=== PATIENT | male | born 1995 ===

== ENCOUNTER → 2022-09-12 | Outpatient (CLI) | payer OTHER ==
[~2022-09-12] MED LIST: AMOCLA875 PO; DOXY100 PO; HUMALOG KW100 UNIT/1 SC; IBUP600 PO; INSULANPEN SC; ONDA4ODT MM
[2022-09-12 19:29] LABS: BASOPHILS ABSOLUTE AUTO 0.05 K/mm3 (0.00-0.23); BASOPHILS PERCENT AUTO 1 % (0-2); EOSINOPHILS PERCENT AUTO 2 % (0-6); Hematocrit 33.5 % (37.0-53.0); Hemoglobin 11.4 g/dL (13.5-17.5); IMMATURE GRAN ABSOLUTE AUTO 0.02 K/mm3 (0.00-0.10); IMMATURE GRAN PERCENT AUTO 0 % (0-1); LYMPHOCYTES ABSOLUTE AUTO 1.04 K/mm3 (0.84-5.20); LYMPHOCYTES PERCENT AUTO 19 % (21-46); MONOCYTES ABSOLUTE AUTO 0.48 K/mm3 (0.16-1.47); MONOCYTES PERCENT AUTO 9 % (4-13); Mean Corpuscular HGB 31.2 pg (26.0-34.0); Mean Corpuscular Volume 92 fL (80-100); Mean Platelet Volume 9.1 fL (9.1-12.4); NEUTROPHILS ABSOLUTE AUTO 3.67 K/mm3 (1.96-9.15); NEUTROPHILS PERCENT AUTO 68 % (41-73); Platelet Count 558 K/mm3 (150-400); RDW Coefficient Variation 11.7 % (11.7-14.2); RDW Standard Deviation 39.3 fL (35.1-46.3); Red Blood Cell Count 3.65 M/mm3 (4.30-5.90); White Blood Cell Count 5.36 K/mm3 (4.00-11.30)
[2022-09-12 21:34] LABS: Bun/Creatinine Ratio 29.8 (12.0-20.0); Calcium, Blood 9.4 mg/dL (8.5-10.1); Creatinine, Blood 0.57 mg/dL (0.60-1.20); Potassium, Blood 4.2 mmol/L (3.5-5.5)
== END | disposition home or self-care (01) ==
LOC: LAB SHORT 17:40
PROVIDERS: Physician Assistant
DX: R60.9 Edema, unspecified (principal)
CPT/HCPCS: 80048; 83880; 85025

== ENCOUNTER → 2023-06-11 | Outpatient (CLI) | payer OTHER ==
[2023-06-11 15:51] LABS: BASOPHILS ABSOLUTE AUTO 0.06 K/mm3 (0.00-0.23); BASOPHILS PERCENT AUTO 1 % (0-2); EOSINOPHILS ABSOLUTE AUTO 0.11 K/mm3 (0.00-0.68); EOSINOPHILS PERCENT AUTO 2 % (0-6); Hematocrit 43.6 % (37.0-53.0); Hemoglobin 15.8 g/dL (13.5-17.5); IMMATURE GRAN ABSOLUTE AUTO 0.03 K/mm3 (0.00-0.10); IMMATURE GRAN PERCENT AUTO 1 % (0-1); LYMPHOCYTES ABSOLUTE AUTO 1.11 K/mm3 (0.84-5.20); LYMPHOCYTES PERCENT AUTO 17 % (21-46); MONOCYTES ABSOLUTE AUTO 0.48 K/mm3 (0.16-1.47); MONOCYTES PERCENT AUTO 7 % (4-13); Mean Corpuscular HGB 31.5 pg (26.0-34.0); Mean Corpuscular HGB Conc 36.2 g/dL (31.5-36.5); Mean Corpuscular Volume 87 fL (80-100); Mean Platelet Volume 10.4 fL (9.1-12.4); NEUTROPHILS ABSOLUTE AUTO 4.73 K/mm3 (1.96-9.15); NEUTROPHILS PERCENT AUTO 73 % (41-73); Platelet Count 374 K/mm3 (150-400); RDW Coefficient Variation 11.5 % (11.7-14.2); RDW Standard Deviation 36.5 fL (35.1-46.3); Red Blood Cell Count 5.02 M/mm3 (4.30-5.90); White Blood Cell Count 6.52 K/mm3 (4.00-11.30)
[2023-06-11 20:05] LABS: Alanine Aminotransfer (ALT/SGP 66 U/L (12-78); Albumin, Blood 3.4 g/dL (3.4-5.0); Albumin/Globulin Ratio 0.8 (0.8-1.8); Alk Phos 79 U/L (50-136); Anion Gap 9 mmol/L (6-16); Aspartate Aminotrans (AST/SGOT 29 U/L (12-37); Bilirubin, Direct <0.1 mg/dL (0.0-0.3); Bilirubin, Indirect Unable to Calculate mg/dL (0.1-0.7); Bilirubin, Total 0.3 mg/dL (0.1-1.0); Blood Urea Nitrogen 19 mg/dL (8-24); Bun/Creatinine Ratio 25.5 (12.0-20.0); CO2, Blood 23 mmol/L (21-32); Calcium, Blood 10.2 mg/dL (8.5-10.1); Chloride, Blood 101 mmol/L (98-108); Creatinine, Blood 0.75 mg/dL (0.60-1.20); Globulin, Blood 4.2 g/dL (2.2-4.0); Glomerular Filtration Rate 126 (60-); Glucose, Blood 386 mg/dL (70-99); Potassium, Blood 4.4 mmol/L (3.5-5.5); Sodium, Blood 133 mmol/L (136-145); Total Protein, Blood 7.6 g/dL (6.4-8.2)
== END ==
LOC: LAB SHORT 10:45 → LAB 10:45
PROVIDERS: Family Medicine
DX: I10 Essential (primary) hypertension (principal); E10.65 Type 1 diabetes mellitus with hyperglycemia
CPT/HCPCS: 80053; 82248; 83036; 84443; 85025

== ENCOUNTER 2023-07-08 10:23 | Inpatient (IN) | payer OTHER ==
[~2023-07-08] VITALS: Ht 172.7 cm; Wt 61.5 kg
[2023-07-08] VITALS (12 sets, daily range): BP systolic 149–183; BP diastolic 97–120
[2023-07-08 10:44] LABS: BASOPHILS ABSOLUTE AUTO 0.04 K/mm3 (0.00-0.23); BASOPHILS PERCENT AUTO 0 % (0-2); EOSINOPHILS PERCENT AUTO 0 % (0-6); Hematocrit 44.4 % (37.0-53.0); IMMATURE GRAN ABSOLUTE AUTO 0.15 K/mm3 (0.00-0.10); IMMATURE GRAN PERCENT AUTO 1 % (0-1); LYMPHOCYTES ABSOLUTE AUTO 0.47 K/mm3 (0.84-5.20); LYMPHOCYTES PERCENT AUTO 2 % (21-46); MONOCYTES ABSOLUTE AUTO 1.03 K/mm3 (0.16-1.47); MONOCYTES PERCENT AUTO 5 % (4-13); Mean Corpuscular HGB 31.2 pg (26.0-34.0); Mean Corpuscular Volume 87 fL (80-100); Mean Platelet Volume 9.6 fL (9.1-12.4); NEUTROPHILS ABSOLUTE AUTO 19.35 K/mm3 (1.96-9.15); NEUTROPHILS PERCENT AUTO 92 % (41-73); Platelet Count 433 K/mm3 (150-400); RDW Coefficient Variation 11.9 % (11.7-14.2); RDW Standard Deviation 37.9 fL (35.1-46.3); Red Blood Cell Count 5.13 M/mm3 (4.30-5.90); White Blood Cell Count 21.04 K/mm3 (4.00-11.30)
[2023-07-08 10:45] LABS: Base Excess Venous -13.3 mmol/L; Bicarbonate Venous 15.9 mmol/L (24.0-30.0); PCO2 Venous 25.6 mmHg (38-42); pH Blood Venous 7.31 (7.34-7.37)
[2023-07-08 10:52] LABS: Albumin, Blood 3.3 g/dL (3.4-5.0); Albumin/Globulin Ratio 0.8 (0.8-1.8); Bilirubin, Total 0.7 mg/dL (0.1-1.0); Calcium, Blood 8.6 mg/dL (8.5-10.1); Creatinine, Blood 0.78 mg/dL (0.60-1.20); Globulin, Blood 4.1 g/dL (2.2-4.0); Total Protein, Blood 7.4 g/dL (6.4-8.2)
[2023-07-08] MEDS ORDERED: BASAGLAR K100 UNIT/8 SQ (12:34)
[2023-07-08] MEDS ORDERED: LOSARTAN POTASS25 M2 PO (12:35)
[2023-07-08] MEDS ORDERED: BUPROPION XL150 M1 PO (12:35)
[2023-07-08] MEDS ORDERED: FUROSEMIDE20 MG PO (12:35)
[2023-07-08] MEDS ORDERED: GABAPENTIN600 MG PO (12:35)
[2023-07-08 12:39] LABS: U Amphetamine Screen Not Detected; U Barbituate Screen Not Detected; U Benzodiazapine Screen Not Detected; U Buprenorphine Screen Not Detected; U Cannabinoids Screen DETECTED; U Cocaine Screen Not Detected; U Methadone Screen Not Detected; U Methamphetamine Screen Not Detected; U Opiates Screen Not Detected; U Oxycodone Screen Not Detected; U Phencyclidine Screen Not Detected
[2023-07-08 13:49] LABS: Potassium, Blood 3.5 mmol/L (3.5-5.5)
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
--- NOTE | 2023-07-08 15:53 | NUR ---
DR. DEAN CALLED AND INFORMED THAT PATIENT ANXIOUS, RESTLESS AND COMPLAINING OF CHRONIC BACK PAIN. INFORMED THAT HR IN THE 140S AND BP 183/120. INFORMED THAT PATIENT TAKES WELLBUTRIN AT HOME AND ALSO [place] POTASSIUM. ORDERS RECEIVED.
[2023-07-08 16:54] LABS: Potassium, Blood 3.1 mmol/L (3.5-5.5)
--- NOTE | 2023-07-08 17:30 | NUR ---
DR. DEAN CALLED AND INFORMED THAT POTASSIUM 3.1, CO2 OF 18 AND ANION 12. INFORMED THAT PATIENT WANTING TO LEAVE AMA. ORDERED FOR 40 ME KCL PO.
--- NOTE | 2023-07-08 17:40 | NUR ---
SHIFT SUMMARY PATIENT REMAINED ALERT AND ORIENTED. PATIENT ANXIOUS, RESTLESS, WITHDRAWN. PATIENT GIVEN PRN TYLENOL FOR COMPLAINTS OF CHRONIC BACK PAIN. PATIENT'S HOME WELLBUTRIN ORDERED AND GIVEN. OT ATIVAN PO GIVEN FOR ANXIETY. PATIENT WEAK BUT ABLE TO AMBULATE INDEPENDENTLY. PATIENT REMAINED AFEBRILE. PATIENT HAD SOFT VOICE "FROM THROWING UP LAST COUPLE OF DAYS". PATIENT REMAINED SATTING HIGH 90S TO 100 ON RA. PATIENT REMAINED IN ST, HR LOW 100S TO 140S. BP 140S TO 180S. PATIENT'S HOME BP MED ORDERED AND ADMINISTERED THIS SHIFT. PATIENT DENIED NAUSEA THIS SHIFT AND DRANK WATER WITH NO PROBLEMS. PATIENT VOIDED ADEQUATE URINE THIS SHIFT INTO URINAL INDEPENDENTLY. NO CHANGES TO SKIN NOTED. PATIENT REPOSITIONED SELF FREQUENTLY IN BED. ONCE BLOOD SUGAR LESS THAN 240 PATIENT TRANSITIONED FROM NS TO D5 1/2 NS AT 100 MLS/ HOUR. INSULIN DRIP UP TO MAX OF 4 UNITS/ HOUR. BLOOD SUGARS RANGED FROM 179 TO 288 THIS SHIFT. THIS AFTERNOON PATIENT STATED HE WANTED TO GO HOME AND WOULD BE LEAVING. NOTHING SEEMED TO INCITE PATIENT TO WANT TO LEAVE. PATIENT ASKED IF HE WOULD LIKE TO SPEAK WITH OR HIS MOTHER AND ALSO EXPLAINED TO (ON 2 SEPARATE OCCASIONS BY PRIMARY NURSE AND CHARGE NURSE) THE IMPORTANCE OF STAYING UNTIL LABS CORRECTED AND OKAY TO LEAVE PER . PATIENT AGREED TO TAKE 40 MEQ KCL PO FOR POTASSIUM OF 3.1 BEFORE LEAVING. PATIENT CALLED MOM TO COME PICK HIM UP. PATIENT PUT CLOTHES ON AND TOOK BELONGINGS WITH (CELL PHONE). PATIENT LEFT AMA AT THIS TIME.
[2023-07-09] MEDS ORDERED: BASAGLAR K100 UNIT/3 SC ×2 (09:03→09:04)
[2023-07-09] MEDS ORDERED: NOVOLIN R100 UNIT/2 SC (09:04)
[2023-07-09] MEDS ORDERED: GABA600 PO (09:35)
[2023-07-09] MEDS ORDERED: OMEP20ER PO (09:35)
[2023-07-09] MEDS ORDERED: FURO20 PO (09:40)
[2023-07-09] MEDS ORDERED: AMLO5 PO (09:41)
[2023-07-09] MEDS ORDERED: LOSA25 PO (09:41)
[2023-07-09] MEDS ORDERED: LISI10 PO (09:42)
[2023-07-09] MEDS ORDERED: TRAZ100 PO (09:42)
== END 2023-07-08 18:05 | disposition left against medical advice (07) | DRG 639 ==
LOC: ER 10:23 → ICUE 13:47
PROVIDERS: Emergency Medicine; ADMIT Internal Medicine
DX: E10.10 Type 1 diabetes mellitus with ketoacidosis without coma (principal); Z79.4 Long term (current) use of insulin; Z86.74 Personal history of sudden cardiac arrest
CPT/HCPCS: 80051; 80053; 82803; 82947; 85025; 93005; 93010; A9270; C1751; J1790; J1815; J2405; J7030; J7042

== ENCOUNTER 2023-07-09 04:14 | Inpatient (IN) | payer OTHER ==
[2023-07-09] VITALS (16 sets, daily range): BP systolic 132–171; BP diastolic 86–113
[~2023-07-09] VITALS: Ht 172.7 cm; Wt 62.7 kg
[~2023-07-09 04:14] MED LIST changes: +BASAGLAR K100 UNIT/8 SQ; +BUPROPION XL150 M1 PO; +FUROSEMIDE20 MG PO; +GABAPENTIN600 MG PO; +LOSARTAN POTASS25 M2 PO
[2023-07-09 04:44] LABS: Base Excess Venous -19.1 mmol/L; Bicarbonate Venous 12.7 mmol/L (24.0-30.0); PCO2 Venous 19.5 mmHg (38-42); pH Blood Venous 7.24 (7.34-7.37)
[2023-07-09 04:46] LABS: Hematocrit 47.5 % (37.0-53.0); Mean Corpuscular HGB 31.2 pg (26.0-34.0); Mean Corpuscular HGB Conc 35.8 g/dL (31.5-36.5); Mean Corpuscular Volume 87 fL (80-100); Mean Platelet Volume 9.7 fL (9.1-12.4); Platelet Count 437 K/mm3 (150-400); Red Blood Cell Count 5.45 M/mm3 (4.30-5.90); White Blood Cell Count 23.37 K/mm3 (4.00-11.30)
[2023-07-09 05:05] LABS: Ethanol (Alcohol), Blood, Med <3 mg/dL; Magnesium, Blood 2.1 mg/dL (1.6-2.4)
[2023-07-09 05:10] LABS: Alanine Aminotransfer (ALT/SGP 30 U/L (12-78); Albumin, Blood 3.7 g/dL (3.4-5.0); Albumin/Globulin Ratio 0.8 (0.8-1.8); Alk Phos 71 U/L (50-136); Anion Gap 27 mmol/L (6-16); Aspartate Aminotrans (AST/SGOT 15 U/L (12-37); Bilirubin, Total 0.9 mg/dL (0.1-1.0); Blood Urea Nitrogen 18 mg/dL (8-24); Bun/Creatinine Ratio 25.1 (12.0-20.0); CO2, Blood 10 mmol/L (21-32); Calcium, Blood 9.3 mg/dL (8.5-10.1); Chloride, Blood 98 mmol/L (98-108); Creatinine, Blood 0.72 mg/dL (0.60-1.20); Globulin, Blood 4.4 g/dL (2.2-4.0); Glomerular Filtration Rate 128 (60-); Glucose, Blood 475 mg/dL (70-99); Potassium, Blood 2.9 mmol/L (3.5-5.5); Sodium, Blood 135 mmol/L (136-145); Total Protein, Blood 8.1 g/dL (6.4-8.2)
[2023-07-09 05:13] LABS: BAND PERCENT MAN 16 % (0-8); BASOPHILS PERCENT MAN 0 % (0-2); EOSINOPHILS PERCENT MAN 0 % (0-6); LYMPHOCYTES ABSOLUTE MAN 1.16 K/mm3 (0.84-5.20); LYMPHOCYTES PERCENT MAN 5 % (21-46); MONOCYTES ABSOLUTE MAN 1.16 K/mm3 (0.16-1.47); MONOCYTES PERCENT MAN 5 % (4-13); NEUTROPHILS ABSOLUTE MAN 21.03 K/mm3 (1.96-9.15); SEG NEUTROPHILS PERCENT MAN 74 % (41-73); TOTAL CELLS COUNTED 100
[2023-07-09 05:58] LABS: Source, Urine Voided
[2023-07-09 05:59] LABS: Beta-hydroxybutyrate 108.6 mg/dL (0.2-2.8)
[2023-07-09 06:04] LABS: Bilirubin, Urine Neg (Neg); Blood, Urine 3+ (Neg); Glucose Qualitative, Urine 4+ (Neg); Ketones, Urine 4+ (Neg); Leukocyte Esterase, Urine Neg (Neg); Nitrite, Urine Neg (Neg); Protein, Urine 4+ (Neg); Specific Gravity, Urine 1.025 (1.003-1.022); Urobilinogen, Urine NORM (Normal)
[2023-07-09 06:07] LABS: Appearance, Urine Clear (Clear); Color, Urine Yellow (P-Yellow)
[2023-07-09 06:12] LABS: Amorphous Light (0-Heavy); Bacteria Not Seen /hpf; Granular Casts 0-2 /lpf (0); Red Blood Cells, Urine 0-2 /hpf (0-2); Squamous Epithelial Cells Not Seen /hpf (Few); White Blood Cells, Urine 0-2 /hpf (0-5)
[2023-07-09 06:17] LABS: U Amphetamine Screen Not Detected; U Barbituate Screen Not Detected; U Benzodiazapine Screen Not Detected; U Buprenorphine Screen Not Detected; U Cannabinoids Screen DETECTED; U Cocaine Screen Not Detected; U Methadone Screen Not Detected; U Methamphetamine Screen Not Detected; U Opiates Screen Not Detected; U Oxycodone Screen Not Detected; U Phencyclidine Screen Not Detected
[2023-07-09 07:36] LABS: Base Excess Venous -12.6 mmol/L; Bicarbonate Venous 15.9 mmol/L (24.0-30.0); PCO2 Venous 29.1 mmHg (38-42); pH Blood Venous 7.29 (7.34-7.37)
[2023-07-09 07:40] LABS: Bun/Creatinine Ratio 26.6 (12.0-20.0); Calcium, Blood 8.3 mg/dL (8.5-10.1); Creatinine, Blood 0.71 mg/dL (0.60-1.20); Magnesium, Blood 1.9 mg/dL (1.6-2.4); Phosphorus, Blood 1.4 mg/dL (2.5-4.9); Potassium, Blood 2.9 mmol/L (3.5-5.5)
[2023-07-09] MEDS ORDERED: BASAGLAR K100 UNIT/3 SC ×2 (09:03→09:04)
[2023-07-09] MEDS ORDERED: NOVOLIN R100 UNIT/2 SC (09:04)
[2023-07-09] MEDS ORDERED: OMEP20ER PO (09:35)
[2023-07-09] MEDS ORDERED: GABA600 PO (09:35)
[2023-07-09] MEDS ORDERED: FURO20 PO (09:40)
[2023-07-09] MEDS ORDERED: LOSA25 PO (09:41)
[2023-07-09] MEDS ORDERED: AMLO5 PO (09:41)
[2023-07-09] MEDS ORDERED: TRAZ100 PO (09:42)
[2023-07-09] MEDS ORDERED: LISI10 PO (09:42)
[2023-07-09 11:53] LABS: Base Excess Venous -11.4 mmol/L; Bicarbonate Venous 16.8 mmol/L (24.0-30.0); PCO2 Venous 27.5 mmHg (38-42); pH Blood Venous 7.33 (7.34-7.37)
[2023-07-09 12:17] LABS: Bun/Creatinine Ratio 24.3 (12.0-20.0); Calcium, Blood 8.2 mg/dL (8.5-10.1); Creatinine, Blood 0.62 mg/dL (0.60-1.20); Magnesium, Blood 1.9 mg/dL (1.6-2.4); Potassium, Blood 3.8 mmol/L (3.5-5.5)
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
[2023-07-09 15:36] LABS: Base Excess Venous -13.1 mmol/L; Bicarbonate Venous 15.5 mmol/L (24.0-30.0); PCO2 Venous 28.7 mmHg (38-42); pH Blood Venous 7.28 (7.34-7.37)
[2023-07-09 16:04] LABS: Magnesium, Blood 1.7 mg/dL (1.6-2.4)
[2023-07-09 17:04] LABS: Bun/Creatinine Ratio 18.6 (12.0-20.0); Calcium, Blood 8.3 mg/dL (8.5-10.1); Creatinine, Blood 0.64 mg/dL (0.60-1.20); Potassium, Blood 3.8 mmol/L (3.5-5.5)
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
--- NOTE | 2023-07-09 20:45 | NUR ---
PATIENT SLEEPING AWAKENS TO SLIGHT STIMULI. CONTINUES TO C/O SORE THROAT, VOICE HORSE AND WET SOUNDING, ABLE TO ORAL SUCTION MOD AMT OF CLEAR TO WHITE SPUTUM. PATIENT VERBALIZED THAT IT IS PAINFUL TO SWALLOW HIS OWN SALIVA. INSULIN DRIP 3 UNITS /HR CONTINUES WITH D5 1/2 NS @ 75 CC/HR. NEXT CHEM IS AT 2200.
[2023-07-09 23:04] LABS: Bun/Creatinine Ratio 16.1 (12.0-20.0); Calcium, Blood 8.1 mg/dL (8.5-10.1); Creatinine, Blood 0.62 mg/dL (0.60-1.20); Potassium, Blood 3.2 mmol/L (3.5-5.5)
[2023-07-10] VITALS (27 sets, daily range): BP systolic 130–177; BP diastolic 82–111
--- NOTE | 2023-07-10 | NUR ---
DOCTOR OLE NOTIFIED OF REPEAT CHEM, AND THAT PATIENT REMAINS NAUSEATED WITH FREQUENT DRY HEAVES. HEART RATE UP TO 150'S HR 130'S AT REST. PLAN TO CONTINUE INSULIN DRIP AND INCREASE D5 1/2NS TO 125 CC/HR. KCL 40 MEQ IV X1.
[2023-07-10 04:56] LABS: BASOPHILS ABSOLUTE AUTO 0.01 K/mm3 (0.00-0.23); BASOPHILS PERCENT AUTO 0 % (0-2); EOSINOPHILS ABSOLUTE AUTO 0.01 K/mm3 (0.00-0.68); EOSINOPHILS PERCENT AUTO 0 % (0-6); Hematocrit 35.8 % (37.0-53.0); Hemoglobin 13.1 g/dL (13.5-17.5); IMMATURE GRAN ABSOLUTE AUTO 0.04 K/mm3 (0.00-0.10); IMMATURE GRAN PERCENT AUTO 0 % (0-1); LYMPHOCYTES ABSOLUTE AUTO 0.59 K/mm3 (0.84-5.20); LYMPHOCYTES PERCENT AUTO 5 % (21-46); MONOCYTES ABSOLUTE AUTO 1.36 K/mm3 (0.16-1.47); MONOCYTES PERCENT AUTO 12 % (4-13); Mean Corpuscular HGB 31.1 pg (26.0-34.0); Mean Corpuscular HGB Conc 36.6 g/dL (31.5-36.5); Mean Corpuscular Volume 85 fL (80-100); Mean Platelet Volume 9.6 fL (9.1-12.4); NEUTROPHILS ABSOLUTE AUTO 9.35 K/mm3 (1.96-9.15); NEUTROPHILS PERCENT AUTO 82 % (41-73); Platelet Count 258 K/mm3 (150-400); RDW Coefficient Variation 11.9 % (11.7-14.2); RDW Standard Deviation 37.1 fL (35.1-46.3); Red Blood Cell Count 4.21 M/mm3 (4.30-5.90); White Blood Cell Count 11.36 K/mm3 (4.00-11.30)
[2023-07-10 05:15] LABS: Magnesium, Blood 1.8 mg/dL (1.6-2.4)
--- NOTE | 2023-07-10 05:25 | NUR ---
SUMMARY PATIENT CONTINUES TO HAVE SEVERE SORE THROAT, MAKING IT DIFFICULT TO SWALLOW HIS OWN ORAL SECRETIONS. USING ORAL SUCTION AT TIMES. ABLE TO TAKE LIQUID TYLENOL WITH EFFORT. ATIVAN GIVEN TWICE DURING THE NIGHT TO HELP WITH ANXIETY. INSULIN DRIP TITRATED DOWN TO 1 UNIT/HR DUE TO GLUCOSE LOW 100'S. D5 1/2 NS @125/HR CONTINUES. GENERALIZED WEAKNESS UP TO SIDE OF BED TO VOID WITH MIN ASSIST, SLIGHTLY OFF BALANCE AT TIMES. SINUS TACH 120'S CONTINUES WITH DBP IN THE 100'S T/O NIGHT.
[2023-07-10 05:36] LABS: Albumin, Blood 2.3 g/dL (3.4-5.0); Albumin/Globulin Ratio 0.7 (0.8-1.8); Bilirubin, Total 0.6 mg/dL (0.1-1.0); Bun/Creatinine Ratio 16.1 (12.0-20.0); Calcium, Blood 8.2 mg/dL (8.5-10.1); Creatinine, Blood 0.56 mg/dL (0.60-1.20); Globulin, Blood 3.4 g/dL (2.2-4.0); Potassium, Blood 3.6 mmol/L (3.5-5.5)
[2023-07-10 05:37] LABS: Total Protein, Blood 5.7 g/dL (6.4-8.2)
--- NOTE | 2023-07-10 08:14 | NUR ---
NURSING ICU DAYSHIFT: Assumed care of pt at approx 0700. A/O, mildy anxious, cooperative w/care. Slight general weakness, able to reposition and stand independently. Small healing scab/abrasion on forehead, skin otherwise intact. C/O 6/10 pain r/t sore throat, impacting ability to swallow secretions, treating w/warm liquids and lozenges. Cardiac monitoring in place, HR 120's, HTN prior to a.m. meds, trace pedal edema. L/S fairly cta t/o, audible moist respirations r/t increased secretions, O2 sat upper 90's on RA, harsh cough producing thick white/clear sputum, continuous O2 monitoring. Abd SNT, BT+, intermittent nausea, emesis often triggered by cough, voiding w/o difficulty per pt. PIV x2, D5 1/2NS infusing at 125mls/hr, insulin gtt at 1unit/hr. No s/s of acute distress this a.m. MomAshanti, at bedside. Update provided and plan of care discussed w/pt and family. Continue Q1 CBG monitoring. Remains NPO though hot tea provided for sore throat. Pt denies any current needs or questions, call light in reach, cont to monitor for changes.
[2023-07-10 10:40] LABS: Albumin, Blood 2.2 g/dL (3.4-5.0); Albumin/Globulin Ratio 0.7 (0.8-1.8); Bilirubin, Total 0.6 mg/dL (0.1-1.0); Bun/Creatinine Ratio 13.1 (12.0-20.0); Calcium, Blood 8.2 mg/dL (8.5-10.1); Creatinine, Blood 0.53 mg/dL (0.60-1.20); Globulin, Blood 3.3 g/dL (2.2-4.0); Total Protein, Blood 5.5 g/dL (6.4-8.2)
[2023-07-10 11:54] LABS: Adenovirus Not Detected (NOT DETECT); Coronavirus 229E Not Detected (NOT DETECT)
[2023-07-10 11:55] LABS: Bordetella pertussis Not Detected (NOT DETECT); Chlamydophila pneumoniae Not Detected (NOT DETECT); Coronavirus HKU1 Not Detected (NOT DETECT); Coronavirus NL63 Not Detected (NOT DETECT); Coronavirus OC43 Not Detected (NOT DETECT); Human Metapneumovirus Not Detected (NOT DETECT); Human Rhinovirus/Enterovirus Not Detected (NOT DETECT); Influenza A/2009-H1 Not Detected (NOT DETECT); Influenza A/H1 Not Detected (NOT DETECT); Influenza A/H3 Not Detected (NOT DETECT); Influenza B Not Detected (NOT DETECT); Mycoplasma pneumoniae Not Detected (NOT DETECT); Parainfluenza Virus 1 Not Detected (NOT DETECT); Parainfluenza Virus 2 Not Detected (NOT DETECT); Parainfluenza Virus 3 Not Detected (NOT DETECT); Parainfluenza Virus 4 Not Detected (NOT DETECT); Respiratory Syncytial Virus Not Detected (NOT DETECT); SARS-Cov-2 (COVID-19), BioFire Not Detected (NOT DETECT)
--- NOTE | 2023-07-10 17:26 | NUR ---
NURSING ICU DAYSHIFT SUMMARY: No significant changes noted t/o the shift. Seen by PMD, new d/o received. IV and oral K+ administered as ordered. D5 1/2 NS continues to infuse at 125mls/hr, insulin gtt titrated to 2 units/hr. Glucose maintaining 170's t/o afternoon, change CBG checks to Q2 hrs. Strep and respiratory panel completed, results reviewed. Pt given magic mouthwash and chloraseptic spray to help w/sore throat, has worked fairly well and is able to clear more secretions than at start of shift. Intermittent nausea though beginning to tolerate small amts of CL and FL items. Spoke w/pt and family regarding plan of care and importance of oral intake, verbalized understanding. Per parents request, plan for meeting w/dialysis chief equipment technician tomorrow at 1100 to discuss diabetic diet in the home. Mother currently and bedside. Pt and family deny any current questions/needs, call light in reach, cont to monitor until rpt is given to NOC RN.
--- NOTE | 2023-07-10 20:32 | NUR ---
PATIENT AWAKE SITTING AT SIDE OF BED. SPEECH CONTINUES TO BE SOFT, PATIENT VERBALIZED THAT HE IS STARTING TO FEEL BETTER. SORE THROAT CONTINUES, BUT PATIENT APPEARS TO BE ABLE TO CONTROL PO AND SECRETIONS BETTER. INSULIN DRIP CONTINUES TITRATE INCREASED TO 3 UNITS/HR DUE TO INCREASED GLUCOSE AFTER EATING FULL LIQUID DIET. CONTINUES TO FEEL ANXIOUS AT TIMES.
[2023-07-11] VITALS (16 sets, daily range): BP systolic 120–163; BP diastolic 85–110
[2023-07-11 03:25] LABS: BASOPHILS ABSOLUTE AUTO 0.01 K/mm3 (0.00-0.23); BASOPHILS PERCENT AUTO 0 % (0-2); EOSINOPHILS ABSOLUTE AUTO 0.04 K/mm3 (0.00-0.68); EOSINOPHILS PERCENT AUTO 1 % (0-6); Hematocrit 33.9 % (37.0-53.0); Hemoglobin 12.3 g/dL (13.5-17.5); IMMATURE GRAN ABSOLUTE AUTO 0.02 K/mm3 (0.00-0.10); IMMATURE GRAN PERCENT AUTO 0 % (0-1); LYMPHOCYTES ABSOLUTE AUTO 0.74 K/mm3 (0.84-5.20); LYMPHOCYTES PERCENT AUTO 9 % (21-46); MONOCYTES ABSOLUTE AUTO 0.74 K/mm3 (0.16-1.47); MONOCYTES PERCENT AUTO 9 % (4-13); Mean Corpuscular HGB 30.4 pg (26.0-34.0); Mean Corpuscular HGB Conc 36.3 g/dL (31.5-36.5); Mean Corpuscular Volume 84 fL (80-100); Mean Platelet Volume 9.3 fL (9.1-12.4); NEUTROPHILS ABSOLUTE AUTO 6.78 K/mm3 (1.96-9.15); NEUTROPHILS PERCENT AUTO 81 % (41-73); Platelet Count 205 K/mm3 (150-400); RDW Coefficient Variation 11.5 % (11.7-14.2); RDW Standard Deviation 35.3 fL (35.1-46.3); Red Blood Cell Count 4.04 M/mm3 (4.30-5.90); White Blood Cell Count 8.33 K/mm3 (4.00-11.30)
[2023-07-11 03:46] LABS: Albumin, Blood 2.1 g/dL (3.4-5.0); Albumin/Globulin Ratio 0.6 (0.8-1.8); Bilirubin, Total 0.5 mg/dL (0.1-1.0); Bun/Creatinine Ratio 9.6 (12.0-20.0); Calcium, Blood 8.2 mg/dL (8.5-10.1); Creatinine, Blood 0.52 mg/dL (0.60-1.20); Globulin, Blood 3.5 g/dL (2.2-4.0); Magnesium, Blood 1.9 mg/dL (1.6-2.4); Phosphorus, Blood 1.5 mg/dL (2.5-4.9); Potassium, Blood 3.1 mmol/L (3.5-5.5); Total Protein, Blood 5.6 g/dL (6.4-8.2)
--- NOTE | 2023-07-11 05:10 | NUR ---
DOCTOR NICKI NOTIFIED OF AM LABS. SEE NEW ORDERS
--- NOTE | 2023-07-11 06:19 | NUR ---
SUMMARY PATIENT SLEEPING OFF AND ON T/O NIGHT. C/O FEELING ANXIOUS SEVERAL TIMES DURING THE NIGHT. ATIVAN GIVEN WITH GOOD RESULTS. PATIENT CONTINUES TO HAVE SORE THROAT, APPEARS TO BE LUNA PO MUCH BETTER TONIGHT. MAGIC MOUTHWASH ONCE DURING THE NIGHT. INSULIN DRIP CONTINUES TITRATING T/O NIGHT NOW AT 3 UNITS/HR. KPHOS INFUSING.
--- NOTE | 2023-07-11 15:33 | NUR ---
DISCHARGE PT VERBALIZED UNDERSTANDING OF DISCHARGE INSTRUCTIONS AND SIGNED PAPERWORK. PT TAKEN TO RIDE HOME VIA WHEELCHAIR AT 1510. ALL PT BELONGINGS SENT WITH PT.
== END 2023-07-11 15:30 | disposition home or self-care (01) | DRG 638 ==
LOC: ER 04:14 → ICUE 05:05
PROVIDERS: Emergency Medicine; Internal Medicine; ADMIT Student in an Organized Health Care Education/Training Program
DX: E10.10 Type 1 diabetes mellitus with ketoacidosis without coma (principal); E87.20 Acidosis, unspecified; R65.10 Systemic inflammatory response syndrome (SIRS) of non-infectious origin without acute organ dysfunction; I10 Essential (primary) hypertension; F41.9 Anxiety disorder, unspecified; E87.6 Hypokalemia
CPT/HCPCS: 0202U; 36415; 71045; 80048; 80053; 81001; 82010; 82803; 82947; 83605; 83735; 84100; 84484; 85025; 87081; 87430; 93005; 93010; 96361; 96365; 96366; 96367; 96375; 99285-25; A9270; C9113; J0696; J1650; J1815; J2060; J2405; J3480; J7030; J7042; J7050; J7060; J7120

== ENCOUNTER 2023-08-07 15:09 | Emergency (ER) | payer OTHER ==
[~2023-08-07] VITALS: Ht 175.3 cm; Wt 68.0 kg
[~2023-08-07 15:09] MED LIST changes: +AMLO5 PO; +BASAGLAR K100 UNIT/3 SC; +FURO20 PO; +GABA600 PO; +LISI10 PO; +LOSA25 PO; +NOVOLIN R100 UNIT/2 SC; +OMEP20ER PO; +TRAZ100 PO
[2023-08-07 16:37] LABS: BASOPHILS ABSOLUTE AUTO 0.03 K/mm3 (0.00-0.23); BASOPHILS PERCENT AUTO 0 % (0-2); EOSINOPHILS ABSOLUTE AUTO 0.06 K/mm3 (0.00-0.68); EOSINOPHILS PERCENT AUTO 1 % (0-6); Hematocrit 37.9 % (37.0-53.0); Hemoglobin 13.6 g/dL (13.5-17.5); IMMATURE GRAN ABSOLUTE AUTO 0.04 K/mm3 (0.00-0.10); IMMATURE GRAN PERCENT AUTO 0 % (0-1); LYMPHOCYTES ABSOLUTE AUTO 0.64 K/mm3 (0.84-5.20); LYMPHOCYTES PERCENT AUTO 6 % (21-46); MONOCYTES ABSOLUTE AUTO 0.74 K/mm3 (0.16-1.47); MONOCYTES PERCENT AUTO 7 % (4-13); Mean Corpuscular HGB 30.8 pg (26.0-34.0); Mean Corpuscular HGB Conc 35.9 g/dL (31.5-36.5); Mean Corpuscular Volume 86 fL (80-100); Mean Platelet Volume 9.4 fL (9.1-12.4); NEUTROPHILS ABSOLUTE AUTO 9.04 K/mm3 (1.96-9.15); NEUTROPHILS PERCENT AUTO 86 % (41-73); Platelet Count 426 K/mm3 (150-400); RDW Coefficient Variation 12.3 % (11.7-14.2); RDW Standard Deviation 38.8 fL (35.1-46.3); Red Blood Cell Count 4.42 M/mm3 (4.30-5.90); White Blood Cell Count 10.55 K/mm3 (4.00-11.30)
[2023-08-07 17:40] LABS: Albumin, Blood 2.6 g/dL (3.4-5.0); Albumin/Globulin Ratio 0.6 (0.8-1.8); Bilirubin, Total 0.3 mg/dL (0.1-1.0); Bun/Creatinine Ratio 24.8 (12.0-20.0); Calcium, Blood 9.1 mg/dL (8.5-10.1); Creatinine, Blood 0.44 mg/dL (0.60-1.20); Globulin, Blood 4.7 g/dL (2.2-4.0); Potassium, Blood 4.2 mmol/L (3.5-5.5); Total Protein, Blood 7.3 g/dL (6.4-8.2)
[2023-08-07 18:18] VITALS: BP 158/109
== END 2023-08-07 20:10 | disposition home or self-care (01) ==
LOC: ER 15:09
PROVIDERS: Physician Assistant
DX: S79.921A Unspecified injury of right thigh, initial encounter (principal); M79.651 Pain in right thigh; E10.9 Type 1 diabetes mellitus without complications; W22.8XXA Striking against or struck by other objects, initial encounter; Z79.899 Other long term (current) drug therapy; Z79.4 Long term (current) use of insulin
CPT/HCPCS: 80053; 82947; 83605; 85025; 96374; 99283-25; A9270; J1885

== ENCOUNTER 2023-08-15 01:58 | Emergency (ER) | payer OTHER ==
[~2023-08-15] VITALS: Ht 172.7 cm; Wt 63.5 kg
[2023-08-15 04:44] LABS: BASOPHILS ABSOLUTE AUTO 0.04 K/mm3 (0.00-0.23); BASOPHILS PERCENT AUTO 0 % (0-2); EOSINOPHILS ABSOLUTE AUTO 0.05 K/mm3 (0.00-0.68); EOSINOPHILS PERCENT AUTO 0 % (0-6); Hematocrit 33.4 % (37.0-53.0); Hemoglobin 12.3 g/dL (13.5-17.5); IMMATURE GRAN PERCENT AUTO 1 % (0-1); LYMPHOCYTES ABSOLUTE AUTO 0.79 K/mm3 (0.84-5.20); LYMPHOCYTES PERCENT AUTO 5 % (21-46); MONOCYTES ABSOLUTE AUTO 0.87 K/mm3 (0.16-1.47); MONOCYTES PERCENT AUTO 5 % (4-13); Mean Corpuscular HGB 30.6 pg (26.0-34.0); Mean Corpuscular HGB Conc 36.8 g/dL (31.5-36.5); Mean Corpuscular Volume 83 fL (80-100); NEUTROPHILS ABSOLUTE AUTO 14.58 K/mm3 (1.96-9.15); NEUTROPHILS PERCENT AUTO 89 % (41-73); Platelet Count 473 K/mm3 (150-400); RDW Coefficient Variation 11.9 % (11.7-14.2); RDW Standard Deviation 36.2 fL (35.1-46.3); Red Blood Cell Count 4.02 M/mm3 (4.30-5.90); White Blood Cell Count 16.43 K/mm3 (4.00-11.30)
[2023-08-15 05:03] LABS: Albumin/Globulin Ratio 0.4 (0.8-1.8); Bun/Creatinine Ratio 22.3 (12.0-20.0); Calcium, Blood 9.3 mg/dL (8.5-10.1); Creatinine, Blood 0.58 mg/dL (0.60-1.20); Globulin, Blood 5.3 g/dL (2.2-4.0); Potassium, Blood 3.5 mmol/L (3.5-5.5); Total Protein, Blood 7.3 g/dL (6.4-8.2)
[2023-08-15 05:57] LABS: Source, Urine Clean Catch
[2023-08-15] MEDS ORDERED: CEPH500 PO (06:09)
[2023-08-15] MEDS ORDERED: SULTRIDS PO (06:09)
[2023-08-15 06:19] LABS: Appearance, Urine Clear (Clear); Bilirubin, Urine Neg (Neg); Blood, Urine 2+ (Neg); Color, Urine Yellow (P-Yellow); Glucose Qualitative, Urine 4+ (Neg); Ketones, Urine Neg (Neg); Leukocyte Esterase, Urine Neg (Neg); Nitrite, Urine Neg (Neg); Protein, Urine 3+ (Neg); Urobilinogen, Urine NORM (Normal)
[2023-08-15 06:28] LABS: Red Blood Cells, Urine 0-2 /hpf (0-2); White Blood Cells, Urine 0-2 /hpf (0-5)
[2023-08-15 06:29] LABS: Bacteria Rare /hpf; Squamous Epithelial Cells Rare /hpf (Few)
[2023-08-15 06:40] VITALS: BP 148/102
[2023-08-15 06:52] LABS: Bilirubin, Total 0.2 mg/dL (0.1-1.0)
[2023-08-16] MEDS ORDERED: PROZAC2010 PO (13:30)
[2023-08-16] MEDS ORDERED: BUSPIRONE HCL10 M6 PO (13:31)
[2023-08-16] MEDS ORDERED: MUPIROCIN2210 TOP (13:31)
[2023-08-16] MEDS ORDERED: OXYC5 PO (13:31)
[2023-08-16] MEDS ORDERED: FUROSEMIDE20 MG PO (13:32)
[2023-08-16] MEDS ORDERED: FAMO20 PO (13:33)
== END 2023-08-15 06:46 | disposition home or self-care (01) ==
LOC: ER 01:58
PROVIDERS: Emergency Medicine
DX: L03.115 Cellulitis of right lower limb (principal); E10.9 Type 1 diabetes mellitus without complications; Z79.899 Other long term (current) drug therapy
CPT/HCPCS: 73706; 80053; 81001; 83605; 85025; 96365-59; 96375-59; 99284-25; A9270; J0696; J1885; Q9967

== ENCOUNTER 2023-08-16 09:22 | Inpatient (IN) | payer OTHER ==
[2023-08-16] VITALS (28 sets, daily range): BP systolic 131–175; BP diastolic 75–115
[~2023-08-16] VITALS: Ht 172.7 cm; Wt 63.8 kg
[~2023-08-16 09:22] MED LIST changes: +CEPH500 PO; +SULTRIDS PO
[2023-08-16 10:21] LABS: BASOPHILS ABSOLUTE AUTO 0.02 K/mm3 (0.00-0.23); BASOPHILS PERCENT AUTO 0 % (0-2); EOSINOPHILS ABSOLUTE AUTO 0.03 K/mm3 (0.00-0.68); EOSINOPHILS PERCENT AUTO 0 % (0-6); Hematocrit 29.4 % (37.0-53.0); Hemoglobin 10.7 g/dL (13.5-17.5); IMMATURE GRAN ABSOLUTE AUTO 0.07 K/mm3 (0.00-0.10); IMMATURE GRAN PERCENT AUTO 0 % (0-1); LYMPHOCYTES ABSOLUTE AUTO 0.54 K/mm3 (0.84-5.20); LYMPHOCYTES PERCENT AUTO 3 % (21-46); MONOCYTES ABSOLUTE AUTO 0.81 K/mm3 (0.16-1.47); MONOCYTES PERCENT AUTO 5 % (4-13); Mean Corpuscular HGB 30.7 pg (26.0-34.0); Mean Corpuscular HGB Conc 36.4 g/dL (31.5-36.5); Mean Corpuscular Volume 84 fL (80-100); NEUTROPHILS ABSOLUTE AUTO 14.23 K/mm3 (1.96-9.15); NEUTROPHILS PERCENT AUTO 91 % (41-73); Platelet Count 402 K/mm3 (150-400); RDW Coefficient Variation 12.1 % (11.7-14.2); RDW Standard Deviation 36.6 fL (35.1-46.3); Red Blood Cell Count 3.49 M/mm3 (4.30-5.90)
[2023-08-16 10:42] LABS: Albumin, Blood 1.6 g/dL (3.4-5.0); Albumin/Globulin Ratio 0.3 (0.8-1.8); Bilirubin, Total 0.3 mg/dL (0.1-1.0); Calcium, Blood 8.7 mg/dL (8.5-10.1); Creatinine, Blood 0.57 mg/dL (0.60-1.20); Globulin, Blood 4.9 g/dL (2.2-4.0); Potassium, Blood 3.5 mmol/L (3.5-5.5); Total Protein, Blood 6.5 g/dL (6.4-8.2)
[2023-08-16 11:50] LABS: Magnesium, Blood 1.9 mg/dL (1.6-2.4); Phosphorus, Blood 2.6 mg/dL (2.5-4.9)
[2023-08-16] MEDS ORDERED: PROZAC2010 PO (13:30)
[2023-08-16] MEDS ORDERED: MUPIROCIN2210 TOP (13:31)
[2023-08-16] MEDS ORDERED: BUSPIRONE HCL10 M6 PO (13:31)
[2023-08-16] MEDS ORDERED: OXYC5 PO (13:31)
[2023-08-16] MEDS ORDERED: FUROSEMIDE20 MG PO (13:32)
[2023-08-16] MEDS ORDERED: FAMO20 PO (13:33)
--- NOTE | 2023-08-16 15:48 | NUR ---
History, Chart, Medications and Allergies reviewed before start of procedure. Ambulatory in Day Surgery. Pre-Op teaching done. Pt verbalizes understanding. Patient confirms NPO status and agrees with scheduled surgery. Surgical site prepped with 2% Chlorhexidine cloth wipe.
--- NOTE | 2023-08-16 19:15 | NUR ---
ARRIVAL TO UNIT PT CAME TO UNIT FROM PACU VIA GURNEY. TRANSFERRED FROM [place] TO BED VIA SLIDING SHEET. PT TOLERATED WELL, ALL EXTRA LINEN TAKEN OUT. LINEN HAD BEEN STAURATED WITH BLOOD FROM PACU BEFORE PRESSURE DRESSING WAS PLACED. PT GIVEN SOME FOOD TO EAT, AND DENIES N/V. CALL LIGHT GIVEN TO PT AND PT WAS EDUCATED ON HOW TO USE IT. TRAY DRAIN COMPRESSED AND DRAINING. DRESSING TO R THIGH C/D/I. NO OTHER COCNERNS AT THIS TIME. CALL LIGHT WITHIN REACH
--- NOTE | 2023-08-17 01:05 | NUR ---
BLOOD SUGAR PT WAS WORRIED ABOUT HIS BLOOD SUGAR. BS WAS TESTED AND IT WAS 487. CALLED PLACED TO HOSPITALIST. ORDERS WERE GIVEN. WILL CONTINUE TO MONITOR
--- NOTE | 2023-08-17 01:15 | NUR ---
PT ASKED TO USE URINAL, ASST. TO SIDE OF BED. NO COMPLAINTS OF DIZZINESS. PT GIVEN URINAL AND GIVEN SOME PRIVACY. THIS NURSE HAD HER BACK TURNED TO PT AND HEARD A THUD. THIS NURSE TURNED AROUND AND FOUND PT ON GROUND NEXT TO BED. PT STATES HE GRABBED IV POLE AND IT MOVED OUT FROM UNDER HIM. HE SLIPPED AND FELL OUT OF BED. DENIES HITTING HEAD. STATES HE HAS SOME NUMBNESS FROM NERVE BLOCK FROM SURGERY. ABLE T DISTINGUISH TOUCH VS NON TOUCH. PT ASST BACK TO BED WITH GAIT BELT. RESTING IN BED NOW. NOTIFIED, ORDER GIVEN FOR IV PAIN MEDICATION. CALL LIGHT WITHIN REACH.
--- NOTE | 2023-08-17 01:45 | NUR ---
PHONE CALL TO DR HANDY TO NOTIFY OF PT FALL.PT ALERT AND ORIENTED.DENIES HITTING HEAD.APPEARING HE WAS RESTING ON EDGE OF BED TO USE URINAL AND HIS RLE REPORTED STILL UNDER EFFECTS OF BLOCK BEGAN TO SLIDE AND PT REACHED FOR IV POLE WHICH ROLLED AWAY FROM HIM AND HE FELL LANDING ON R HIP.PT TEARFUL,REPORTS FEAR OF FALL AND PAIN.PT WAS ASSISTED BACK TO BED USING GAIT BELT AND 3 STAFF.PT FU. REPORTS NUMBNESS RLE BELOW THIGH,HOWEVER, PT IS ABLE TO DISTINGUISH TOUCH VS NON TOUCH TO RLE.PT WITH ONLY PO PAIN MEDS AND PTS RN REQUESTING IV PAIN MEDS FOR THIS PT AT THIS TIME. DR HANDY GAVE ORDER FOR IV FENTAYL PRN.AT THIS TIME, PT RESTING IN BED SUPINE WITH NO C/O OTHER THAN PAIN.
[2023-08-17 03:48] VITALS: BP 139/83
[2023-08-17 05:50] LABS: Hematocrit 23.6 % (37.0-53.0); Hemoglobin 8.2 g/dL (13.5-17.5); Mean Corpuscular HGB Conc 34.7 g/dL (31.5-36.5); Mean Corpuscular Volume 86 fL (80-100); Mean Platelet Volume 9.2 fL (9.1-12.4); Platelet Count 476 K/mm3 (150-400); RDW Standard Deviation 38.5 fL (35.1-46.3); Red Blood Cell Count 2.73 M/mm3 (4.30-5.90); White Blood Cell Count 21.07 K/mm3 (4.00-11.30)
[2023-08-17 06:14] LABS: BAND PERCENT MAN 29 % (0-8); BASOPHILS PERCENT MAN 0 % (0-2); EOSINOPHILS PERCENT MAN 0 % (0-6); LYMPHOCYTES ABSOLUTE MAN 0.42 K/mm3 (0.84-5.20); LYMPHOCYTES PERCENT MAN 2 % (21-46); MONOCYTES ABSOLUTE MAN 0.42 K/mm3 (0.16-1.47); MONOCYTES PERCENT MAN 2 % (4-13); NEUTROPHILS ABSOLUTE MAN 20.22 K/mm3 (1.96-9.15); SEG NEUTROPHILS PERCENT MAN 67 % (41-73); TOTAL CELLS COUNTED 100
[2023-08-17 06:26] LABS: Albumin, Blood 1.5 g/dL (3.4-5.0); Albumin/Globulin Ratio 0.3 (0.8-1.8); Bilirubin, Total 0.3 mg/dL (0.1-1.0); Bun/Creatinine Ratio 24.3 (12.0-20.0); Calcium, Blood 8.2 mg/dL (8.5-10.1); Creatinine, Blood 0.66 mg/dL (0.60-1.20); Globulin, Blood 4.5 g/dL (2.2-4.0); Magnesium, Blood 2.1 mg/dL (1.6-2.4); Potassium, Blood 4.1 mmol/L (3.5-5.5)
--- NOTE | 2023-08-17 06:37 | NUR ---
SHIFT SUMMARY POD 1 R THIGH I&D PT SLEPT FOR A TINY BIT, NOT ABLE TO GET GOOD REST. PAIN NEEDS MORE MANAGEMENT. PT HAD A FALL, SEE PREVIOUS NOTE. PT TOLERTAING PO INTAKE, VOIDING. TRAY DRAIN COMPRESSED, DRAINING SANGINEOUS FLUID. DRESSING C/D/I. NO OTHER CONCERNS AT THIS TIME. CALL LIGHT WITHIN REACH.
--- NOTE | 2023-08-17 07:34 | NUR ---
CALL PLACED TO SURGEON ABOUT PT FALL W/ INC PAIN, AND SWELLING IN R EXT. NO NEW ORDERS GIVEN AT THIS TIME.
[2023-08-17 08:25] VITALS: BP 148/98
--- NOTE | 2023-08-17 10:22 | NUR ---
UPON MORNING ASSESSMENT PT RATING PAIN 10/10 IN R THIGH, CONSTANT AND THROBBING. PT ALSO APPEARS VERY ANXIOUS AND IS CRYING. NO ACUTE CHANGE IN SENSATION, PT REPORTS NO N/T. R PEDAL PULSE +2. MODERATE SWELLING NOTED TO R THIGH AND FOOT. DR. OSBORN CALLED BY THIS RN AT ABOUT 0815 AND TOLD THE ABOVE INFORMATION. NEW ORDER FOR IV MORPHINE. PLAN TO ALSO GIVE ORDERED BUSPAR.
--- NOTE | 2023-08-17 10:34 | NUR ---
DR. AKERS IN ROOM AT ABOUT 1010, SEE NEW ORDERS FOR IMAGING.
--- NOTE | 2023-08-17 13:52 | NUR ---
TACHYCARDIA AND CBG'S: PER TELE, PT HR TRENDING 120-130'S THIS MORNING NO CHANGE IN RHYTHM. PT HAS BEEN ANXIOUS AND VERY PAINFUL TODAY. MEDICATED PER EMAR. PT DENIES CP, SOB. ALL OTHER VSS. PT CBG'S HAVE BEEN TRENDING IN 300'S. GIVEN INSULIN PER EMAR BEFORE MEALS. DR. OSBORN IN ROOM AT ABOUT 1230 AND MADE AWARE OF THE ABOVE. SEE NEW ORDERS.
[2023-08-17 15:44] VITALS: BP 144/95
--- NOTE | 2023-08-17 17:47 | NUR ---
SUMMARY: PT IS POD1 R THIGH I&D. A/O, HR HAS TRENDED 115-130'S TODAY. LOW 100'S WHEN PT SLEEPING. NO CP. DR. OSBORN AWARE OF TACHYCARDIA. OTHERWISE VSS. PAIN APPEARS TO BE BETTER AND WELL MANAGED WITH OXYCODONE Q4, PT HAS NOT REQUESTED MORPHINE TONIGHT. XRAYS COMPLETED TO R LEG. NO CHANGE IN SENSATION TODAY, SURGICAL SITE CDI, NO BLEED NOTED. PT UP TO BATHROOM WITH FWW, SBA. FALL RISK , AND SAFETY EDUCATION REINFORCED. PT HAS USED CALL LIGHT TO VOICE NEEDS. PLAN IS FOR NPO AT 0000 AND POSSIBLE SURGERY TOMORROW.
[2023-08-17 19:58] VITALS: BP 147/98
--- NOTE | 2023-08-18 04:09 | NUR ---
SHIFT SUMMARY POD2 R THIGH I&D PT RESTED DURING THE NIGHT. PT REQUESTED TO TALK TO SOMEONE DANILO. DISCUSSED W/ PT THAT WE DONT HAVE ANYONE DURING THE NIGHT THAT HE COULD TALKE TO. THIS NURSE PUT IN A CONSULT WITH SPIRITUAL CARE TO COME SEE PT. PT AGREED TO THIS AND IS THANKFUL. PT EXPRESSED FEEELINGS OF BEING DEPRESSED FROM "NOT HAVING ANY CONTROL AT THE HOSPITAL". PT VERY TEARFUL, THIS NURSE TRYING TO COMFORT PT. PT HAS BEEN NPO SINCE MIDNIGHT FOR POSSIBLE SECOND I&D OF THE R THIGH. PT NOW ON Q6H CBG'S. NO OTHER COCNERNS AT THIS TIME CALL LIGHT WITHIN REACH
[2023-08-18 04:42] VITALS: BP 137/96
[2023-08-18 07:35] LABS: BASOPHILS ABSOLUTE AUTO 0.02 K/mm3 (0.00-0.23); BASOPHILS PERCENT AUTO 0 % (0-2); EOSINOPHILS ABSOLUTE AUTO 0.08 K/mm3 (0.00-0.68); EOSINOPHILS PERCENT AUTO 1 % (0-6); Hematocrit 19.5 % (37.0-53.0); IMMATURE GRAN ABSOLUTE AUTO 0.11 K/mm3 (0.00-0.10); IMMATURE GRAN PERCENT AUTO 1 % (0-1); LYMPHOCYTES ABSOLUTE AUTO 1.06 K/mm3 (0.84-5.20); LYMPHOCYTES PERCENT AUTO 9 % (21-46); MONOCYTES ABSOLUTE AUTO 0.68 K/mm3 (0.16-1.47); MONOCYTES PERCENT AUTO 6 % (4-13); Mean Corpuscular HGB 30.8 pg (26.0-34.0); Mean Corpuscular HGB Conc 35.9 g/dL (31.5-36.5); Mean Corpuscular Volume 86 fL (80-100); Mean Platelet Volume 8.5 fL (9.1-12.4); NEUTROPHILS ABSOLUTE AUTO 9.79 K/mm3 (1.96-9.15); NEUTROPHILS PERCENT AUTO 83 % (41-73); Platelet Count 414 K/mm3 (150-400); RDW Coefficient Variation 12.2 % (11.7-14.2); RDW Standard Deviation 38.3 fL (35.1-46.3); Red Blood Cell Count 2.27 M/mm3 (4.30-5.90); White Blood Cell Count 11.74 K/mm3 (4.00-11.30)
[2023-08-18 07:38] VITALS: BP 131/84
[2023-08-18 08:02] LABS: Albumin, Blood 1.4 g/dL (3.4-5.0); Albumin/Globulin Ratio 0.3 (0.8-1.8); Bilirubin, Total 0.1 mg/dL (0.1-1.0); Bun/Creatinine Ratio 24.6 (12.0-20.0); Creatinine, Blood 0.53 mg/dL (0.60-1.20); Globulin, Blood 4.3 g/dL (2.2-4.0); Potassium, Blood 3.8 mmol/L (3.5-5.5); Total Protein, Blood 5.7 g/dL (6.4-8.2)
[2023-08-18 08:15] LABS: Vancomycin, Trough 19.8 ug/mL (5.0-10.0)
[2023-08-18 14:12] LABS: Body Fluid Crystals NEG (NEGATIVE); Glucose, Body Fluid 69 mg/dL; Protein, Body Fluid 0.5 g/dL
[2023-08-18 14:22] LABS: WBC Count, Synovial Fluid 7 /mm3 (0-180)
[2023-08-18 14:37] LABS: RBC Count, Synovial Fluid 97 /mm3 (0-0)
[2023-08-18 14:38] LABS: Color, Synovial Fluid Colorless (None-P Yel)
[2023-08-18 15:31] LABS: Lymphs, Synovial Fluid 9 % (0-15); Monocytes/Macrophages, Synovia 64 % (0-65); Neutrophils, Synovial Fluid 27 % (0-24)
[2023-08-18 17:10] VITALS: BP 144/93
--- NOTE | 2023-08-18 17:10 | NUR ---
TACHYCARDIA: PT HAS BEEN RUNNING TACHY T/O SHIFT. DR OSBORN ORDERED METOPROLOL BID. ALSO PT HAS FACIAL LUMPS THAT ARE A CONCERN FOR HIM. ORDER FOR FACIAL CT. ENT CONSULT ORDERED BUT UNAVAILABLE UNTIL SUNDAY SO WILL NEED TO BE CALLED SUNDAY.
[2023-08-18 17:11] VITALS: BP 139/92
[2023-08-18 19:09] VITALS: BP 140/97
--- NOTE | 2023-08-18 19:44 | NUR ---
PT HAS BEEN VERY ANXIOUS AND TEARFUL THIS SHIFT. PT HAS SUDDEN MOOD SWINGS THAT ARE HIGH AND LOW. PT GENERALLY COMPLAINS OF HOSPITAL CARE. POD #2 FOR I+D. DRESSING CHANGED BY DR ASENCIO WHO ALSO DID A BEDSIDE ASPIRATION OF KNEE FLUID. RESULTS PENDING. RIGHT LEG AND SCROTUM EDEMETOUS. PT ON ADA DIET UNTIL MIDNIGHT FOR POSSIBLE REPEAT I+D. BLOOD SUGARS HAVE BEEN STABLE. TRAY DRAIN TO RIGHT THIGH WITH MINIMAL SANGUINOUS OUTPUT. CT OF RIGHT THIGH COMPLETED THIS AFTERNOON PER ORDERS. PT TO HAVE CT OF FACIAL AREA TOMORROW R/T TO SEVERAL LUMPS ON FOREHEAD. ALSO HAS ENT CONSULT ORDERED WHICH NEEDS TO BE CALLED SUNDAY THERE IS NO COVERAGE AT THIS TIME AVAILABLE.
--- NOTE | 2023-08-18 21:00 | NUR ---
HOSPITALIST HOSPITALIST NOTIFIED OF PT'S INCREASED ANXIETY. PT & FAMILY BOTH REQUESTING ANXIETY MEDICATIONS. HYDROXIZINE 50 MG PO X1 & HOME DOSE OF TRAZADONE WAS ORDERED & GIVEN.
[2023-08-19 04:48] VITALS: BP 125/87
--- NOTE | 2023-08-19 06:50 | NUR ---
SHIFT SUMMARY PT WAS EXTREMLY ANXIOUS AT THE BEGINNING OF THE SHIFT, ATARAX PO X1 GIVEN ALONG W HOME DOSE OF TRAZADONE, PT WAS ABLE TO CALM DOWN & REST COMFORTABLY THROUGH THE NIGHT, PAIN MNGD PER EMAR, DRSG REMAINS C/D/I, 40 ML'S SANGUIOUS FLUID NOTED IN TRAY DRAIN, BULB COMPRESSED, CIRC WNL, DENIES N/T, ENC TO ELEVATE LEG, NPO SINCE MIDNIGHT PENDING PROCEDURE, VOIDING WNL, VSS, REMAINS TACHY. NO OTHER ACUTE CHANGES NOTED, REPORT GIVEN TO DAY SHIFT RN, CALL LIGHT IN REACH
[2023-08-19 07:15] LABS: BASOPHILS ABSOLUTE AUTO 0.02 K/mm3 (0.00-0.23); BASOPHILS PERCENT AUTO 0 % (0-2); EOSINOPHILS ABSOLUTE AUTO 0.09 K/mm3 (0.00-0.68); EOSINOPHILS PERCENT AUTO 1 % (0-6); Hematocrit 18.3 % (37.0-53.0); Hemoglobin 6.4 g/dL (13.5-17.5); IMMATURE GRAN ABSOLUTE AUTO 0.08 K/mm3 (0.00-0.10); IMMATURE GRAN PERCENT AUTO 1 % (0-1); LYMPHOCYTES ABSOLUTE AUTO 0.99 K/mm3 (0.84-5.20); LYMPHOCYTES PERCENT AUTO 11 % (21-46); MONOCYTES ABSOLUTE AUTO 0.63 K/mm3 (0.16-1.47); MONOCYTES PERCENT AUTO 7 % (4-13); Mean Corpuscular HGB 30.5 pg (26.0-34.0); Mean Corpuscular Volume 87 fL (80-100); NEUTROPHILS ABSOLUTE AUTO 7.37 K/mm3 (1.96-9.15); NEUTROPHILS PERCENT AUTO 80 % (41-73); Platelet Count 410 K/mm3 (150-400); RDW Coefficient Variation 12.1 % (11.7-14.2); RDW Standard Deviation 38.9 fL (35.1-46.3); White Blood Cell Count 9.18 K/mm3 (4.00-11.30)
[2023-08-19 07:34] LABS: Vancomycin, Trough 19.8 ug/mL (5.0-10.0)
[2023-08-19 07:42] LABS: Albumin, Blood 1.4 g/dL (3.4-5.0); Albumin/Globulin Ratio 0.3 (0.8-1.8); Bilirubin, Total 0.1 mg/dL (0.1-1.0); Bun/Creatinine Ratio 14.3 (12.0-20.0); Calcium, Blood 8.1 mg/dL (8.5-10.1); Creatinine, Blood 0.56 mg/dL (0.60-1.20); Globulin, Blood 4.2 g/dL (2.2-4.0); Total Protein, Blood 5.6 g/dL (6.4-8.2)
[2023-08-19 09:14] VITALS: BP 140/94
[2023-08-19 13:57] VITALS: BP 140/99
--- NOTE | 2023-08-19 16:21 | NUR ---
SHIFT SUMMARY PT POD 3 I&D R THIGH ABCESS. EDWARD WRAP TO R THIGH C/D/I, TRAY DRAIN WITH CLEAR LIGHT PINK DRAINAGE PRESENT. PAIN HAS BEEN CONTROLLED WELL WITH PO MEDICATION FOR LEG. PT WENT FOR REPEAT CT SCAN THIS AFTERNOON. PT HAD C/O SCROTAL SWELLING UNCHANGED SINCE YESTERDAY BUT C/O INCREASED PAIN. PT MEDICATED WITH 2MG MORPHINE FOR 7/10 PAIN. PLAN TO CONTINUE WITH IV ABX NPO AT MIDNIGHT FOR POS I&D TOMORROW. ENT WILL ALSO CONSULT TOMORROW (SEE PREVIOUS SHIFT NOTE). PT USING URINAL INDEPENDENTLY, DOES NEED ASSIST TO SIDE OF BED.
[2023-08-19 20:23] VITALS: BP 135/96
[2023-08-19 23:16] LABS: U Amphetamine Screen Not Detected; U Barbituate Screen Not Detected; U Benzodiazapine Screen Not Detected; U Buprenorphine Screen Not Detected; U Cannabinoids Screen DETECTED; U Cocaine Screen Not Detected; U Methadone Screen Not Detected; U Methamphetamine Screen Not Detected; U Opiates Screen DETECTED; U Oxycodone Screen Not Detected; U Phencyclidine Screen Not Detected
[2023-08-20] VITALS (21 sets, daily range): BP systolic 112–141; BP diastolic 75–105
--- NOTE | 2023-08-20 06:45 | NUR ---
SHIFT SUMMARY NO ACUTE CHANGES NOTED THROUGH THE NIGHT, PT CONTINUES TO BE ANXIOUS BUT COOPERATIVE W CARE, ATARAX 50 MG PO Q6P WAS ORDERED, PT REPORTS RELIEF, PAIN MANAGED PER EMAR, COLD/HEAT OPTIONS WERE STRONGLY ENC FOR PAIN CONTROL, ROM TO LEG WAS DONE & MOBILITY ENC, DRSG REMAINS C/D/I, 20 ML'S SANGUINOUS FLUID IN TRAY, NPO SINCE 0000 FOR PENDING PROCEDURE, REPORT GIVEN TO ALFREDO VILLA, CALL LIGHT IN [place]
[2023-08-20 07:07] LABS: BASOPHILS ABSOLUTE AUTO 0.02 K/mm3 (0.00-0.23); BASOPHILS PERCENT AUTO 0 % (0-2); EOSINOPHILS ABSOLUTE AUTO 0.11 K/mm3 (0.00-0.68); EOSINOPHILS PERCENT AUTO 1 % (0-6); Hemoglobin 6.2 g/dL (13.5-17.5); IMMATURE GRAN ABSOLUTE AUTO 0.08 K/mm3 (0.00-0.10); IMMATURE GRAN PERCENT AUTO 1 % (0-1); LYMPHOCYTES ABSOLUTE AUTO 0.85 K/mm3 (0.84-5.20); LYMPHOCYTES PERCENT AUTO 10 % (21-46); MONOCYTES ABSOLUTE AUTO 0.57 K/mm3 (0.16-1.47); MONOCYTES PERCENT AUTO 7 % (4-13); Mean Corpuscular HGB Conc 34.4 g/dL (31.5-36.5); Mean Corpuscular Volume 87 fL (80-100); Mean Platelet Volume 8.5 fL (9.1-12.4); NEUTROPHILS ABSOLUTE AUTO 6.92 K/mm3 (1.96-9.15); NEUTROPHILS PERCENT AUTO 81 % (41-73); Platelet Count 396 K/mm3 (150-400); RDW Coefficient Variation 11.9 % (11.7-14.2); RDW Standard Deviation 38.6 fL (35.1-46.3); Red Blood Cell Count 2.07 M/mm3 (4.30-5.90); White Blood Cell Count 8.55 K/mm3 (4.00-11.30)
[2023-08-20 07:29] LABS: Alanine Aminotransfer (ALT/SGP 14 U/L (12-78); Albumin, Blood 1.4 g/dL (3.4-5.0); Albumin/Globulin Ratio 0.3 (0.8-1.8); Alk Phos 67 U/L (50-136); Anion Gap 4 mmol/L (6-16); Aspartate Aminotrans (AST/SGOT 20 U/L (12-37); Bilirubin, Total 0.2 mg/dL (0.1-1.0); Blood Urea Nitrogen 8 mg/dL (8-24); Bun/Creatinine Ratio 14.5 (12.0-20.0); CO2, Blood 31 mmol/L (21-32); Calcium, Blood 8.2 mg/dL (8.5-10.1); Chloride, Blood 104 mmol/L (98-108); Creatinine, Blood 0.55 mg/dL (0.60-1.20); Globulin, Blood 4.2 g/dL (2.2-4.0); Glomerular Filtration Rate 138 (60-); Glucose, Blood 225 mg/dL (70-99); Potassium, Blood 3.8 mmol/L (3.5-5.5); Sodium, Blood 139 mmol/L (136-145); Total Protein, Blood 5.6 g/dL (6.4-8.2); Vancomycin, Trough 21.1 ug/mL (5.0-10.0)
--- NOTE | 2023-08-20 09:00 | NUR ---
SPOKE WITH DR. MAGANA REGARDING LOW H&H, CRITICAL HIGH VANCO TROUGH OF 21.1, INSULIN COVERAGE, AND NEED FOR PT/OT. DR. MAGANA STATED SHE WOULD REVIEW LABS AND ORDER PRBC. PHARMACY MANAGING VANCO. PER DR. MAGANA CONTINUE WITH GLARGINE COVERAGE ORDERED AND TRANSITION PT TO LOW SLIDING SCALE Q6 HOURS WHILE NPO AND HOLD ALL OTHER INSULINS UNTIL PT IS ABLE TO EAT. PT/OT ORDER PLACED.
--- NOTE | 2023-08-20 11:45 | NUR ---
SPOKE WITH DR. ASENCIO REGARDING PLAN OF CARE, DR. ASENCIO STATED DR. PIEDRA WOULD TAKE OVER CARE TODAY. DR. PIEDRA CONTACTED, HE ORDERED PT TO HAVE ONLY CLEAR LIQUIDS UNTIL 1000. DR. PIEDRA ROUNDED ON PT AND REPORTED PLAN FOR SURGERY TODAY, HE STATED OK FOR PT TO HAVE ICE CHIPS UNTIL 1130 BECAUSE SURGERY WOULD BE LATER THIS AFTERNOON.
--- NOTE | 2023-08-20 12:10 | NUR ---
PRBC STARTED AT APPROXIMATELY 1110, PT TOLERATED THE FIRST 15 MINUTES OF THE TRANSFUSION WELL.
--- NOTE | 2023-08-20 12:30 | NUR ---
PT TAKEN TO DAY SURGERY AT 1155 BY ERROL RHOADES RN. ERROL RHOADES REQUESTED THAT THIS RN NOT GIVE SLIDING SCALE INSULIN COVERAGE, ERROL STATED SHE WOULD DISCUSS INSULIN COVERAGE WITH THE ANESTHESIOLOGIST AND GIVE IT IN DAY SURGERY IF IT WAS NEEDED. RACHEL EUGENE RN LATER RETURNED FOR INSULIN PEN AND PT'S NOON VANCO. PRBC SENT WITH ERROL VILLA AND SHE WAS NOTIFIED THAT NEXT VITALS WERE DUE AT 1210. ERROL WAS ALSO NOTIFIED THAT DR. PIEDRA ALLOWED PT TO HAVE CLEAR LIQUIDS UNTIL 1000 AND THEN ICE CHIPS UNTIL 1130.
--- NOTE | 2023-08-20 12:30 | NUR ---
REPORT FROM ERROL RHOADES RN. PT AXOX4, WAITING FOR SURGEON TO COME TO [facility].
--- NOTE | 2023-08-20 12:59 | NUR ---
Upon receiving a referral for spiritual care, I visited the patient. He is tearful throughout the visit and states that he his having a challenging time mentally and emotionally. He explains about his strained connection with his RN and his request to have a new RN. New RN is stated to be kind and attentive. Patient notes that struggles with communication for getting the correct meal and other issues. He shares about the pain of a breakup of a 10 yr relationship with a SO and his inability to trust or even try at relationships. He stated on the positive side that he had a non existent relationship with his father that over the last yr has become very solid. He is extremely thankful for this, as he has had some healing and new strength because of its re-establishment. I normalize his experience, highlight his character qualities and provide therapeutic listening, and a calming presence just prior to going in for a procedure. PAtient responded well and showed signs of an elevated mood and greater hope for the future. I will continue to remain available to patient and family.
--- NOTE | 2023-08-20 16:16 | NUR ---
PT ARRIVED BACK TO THE ROOM AT APPROXIMATELY 1550. PT RATES PAIN AT 3/10. PT UPSET THAT HIS TRAY WAS NOT HELD, THIS RN EXPLAINED THAT HIS TRAY WAS HELD BUT IT HAD BEEN DISCARDED FOR SAFETY REASONS. PT OFFERED OTHER MEAL OPTIONS AND MICHELLE PT ADVOCATE SPOKE WITH THE PT. DR. MAGANA CONTACTED FOR UPDATED POST-OP INSULIN ORDERS. PT STATES HE TAKES 1 UNIT OF INSULIN FOR EVERY 15 CARBS, DR. MAGANA NOTIFIED AND OPTED TO CONTNUE WITH MEDIUM SLIDING SCALE AND HUMALOG 5 UNITS WITH MEALS. INSULIN HAS NOT BEEN GIVEN AT THIS TIME BECAUSE PT STATES HE DOES NOT FEEL WELL AND IS UNSURE IF HE WILL EAT.
[2023-08-21 04:03] VITALS: BP 134/89
[2023-08-21 04:48] LABS: BASOPHILS ABSOLUTE AUTO 0.03 K/mm3 (0.00-0.23); BASOPHILS PERCENT AUTO 0 % (0-2); EOSINOPHILS ABSOLUTE AUTO 0.08 K/mm3 (0.00-0.68); EOSINOPHILS PERCENT AUTO 1 % (0-6); Hematocrit 24.2 % (37.0-53.0); Hemoglobin 8.5 g/dL (13.5-17.5); IMMATURE GRAN ABSOLUTE AUTO 0.07 K/mm3 (0.00-0.10); IMMATURE GRAN PERCENT AUTO 1 % (0-1); LYMPHOCYTES ABSOLUTE AUTO 0.92 K/mm3 (0.84-5.20); LYMPHOCYTES PERCENT AUTO 8 % (21-46); MONOCYTES ABSOLUTE AUTO 0.98 K/mm3 (0.16-1.47); MONOCYTES PERCENT AUTO 9 % (4-13); Mean Corpuscular HGB 30.1 pg (26.0-34.0); Mean Corpuscular HGB Conc 35.1 g/dL (31.5-36.5); Mean Corpuscular Volume 86 fL (80-100); Mean Platelet Volume 8.5 fL (9.1-12.4); NEUTROPHILS ABSOLUTE AUTO 8.94 K/mm3 (1.96-9.15); NEUTROPHILS PERCENT AUTO 81 % (41-73); Platelet Count 442 K/mm3 (150-400); RDW Coefficient Variation 12.1 % (11.7-14.2); RDW Standard Deviation 38.1 fL (35.1-46.3); Red Blood Cell Count 2.82 M/mm3 (4.30-5.90); White Blood Cell Count 11.02 K/mm3 (4.00-11.30)
[2023-08-21 05:22] LABS: Albumin, Blood 1.5 g/dL (3.4-5.0); Albumin/Globulin Ratio 0.3 (0.8-1.8); Bilirubin, Total 0.2 mg/dL (0.1-1.0); Bun/Creatinine Ratio 16.6 (12.0-20.0); Calcium, Blood 8.4 mg/dL (8.5-10.1); Creatinine, Blood 0.54 mg/dL (0.60-1.20); Globulin, Blood 4.6 g/dL (2.2-4.0); Potassium, Blood 4.1 mmol/L (3.5-5.5); Total Protein, Blood 6.1 g/dL (6.4-8.2)
[2023-08-21 06:25] VITALS: BP 131/92
--- NOTE | 2023-08-21 07:41 | NUR ---
SHIFT SUMMARY A&O X4, ON RA, VSS, SURG DRSG REMAINS C/D/I, PT ENC TO ELEVATE/ICE R.THIGH TO DECREASE PAIN/SWELLING, EDWARD WRAP REMAINS ON LOWER LEG, PT DENIES N/T, CIRC WNL, PAIN MEDS GIVEN PRN PER EMAR AT PT REQUEST, PT WAS ABLE TO SIT IN A CHAIR BEDSIDE FOR AN HOUR W NO COMPLAINTS, SBA W/FWW, SPONGE BATH SUPPLIES WERE PROVIDED, BED LINEN/GOWN CHANGED. PT CALLED FOR ASSITANCE TO GET BACK IN BED, STAFF WAS BUSY AT THE TIME, PT'S ANXIETY & "PAIN" QUICKLY INCREASED, PT PUSHED HIS CALL OWUSU EVERY 3-5 MINUTES, ENDOSCOPY TECHNICIAN WAS SENT TO ASSIST PT BACK TO BED & OFFER ICE/ELEVATION FOR PAIN, PT BECAME UPSET, THIS RN WAS WITH ANOTHER PT AT THIS TIME, HE CONTINUED TO CALL N.ROSELINE, DARIA RN MEDICATED PT W 2 MG IV MORPHINE & PROVIDED WARM BLANKETS REQUESTED, PT BEGAN TO ARGUE ABOUT CALL TIMES, PAIN, ECT,, THIS RN SPOKE W PT SHORTLY AFTER, PT REMAINED ANXIOUS, FRUSTRATED, & CONT TO ARGUE ABOUT CARE, PT SAT AT BEDSIDE T USE URINAL, TOLD THIS RN TO LEAVE ROOM, SAFETY REMINDERS GIVEN, THIS RN RETURNED TO ROOM 5 MINUTES LATER, PT HAD AMBULATED W NO WALKER ACROSS THE ROOM TO PLACE URINAL ON THE COMPUTER, SAFETY EDUCATION WAS GIVEN AGAIN, PT STRONGLY ENC TO WAIT FOR ASSISTANCE, PT WAS ANGRY AT THIS POINT & BEGAN TO CRY, BED LEFT IN LOW POSITION, CALL LIGHT IN REACH, EVENTS SPECIALIST & NURSE HAND SURGEON NOTIFIED. PT WAS ABLE TO FALL ASLEEP SHORTLY AFTER, BEDSIDE REPORT GIVEN TO NATALYA VILLA THIS AM,
[2023-08-21 10:28] LABS: Vancomycin, Trough 17.6 ug/mL (5.0-10.0)
[2023-08-21] MEDS ORDERED: DOCU100 PO (13:50)
[2023-08-21] MEDS ORDERED: GABA300 PO (13:51)
[2023-08-21] MEDS ORDERED: METO25ER PO (13:52)
[2023-08-21] MEDS ORDERED: Norco 10-325 T1 EACH PO (13:52)
[2023-08-21] MEDS ORDERED: MIRALAX11910 PO (13:53)
[2023-08-21] MEDS ORDERED: SULTRIDS PO (13:57)
[2023-08-21] MEDS ORDERED: BASAGLAR K100 UNIT/3 SC (14:44)
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
[2023-08-21 15:35] VITALS: BP 128/94
--- NOTE | 2023-08-21 16:09 | NUR ---
DISCHARGE INSTRUCTIONS WRITTEN AND VERBAL DISCHARGE INSTRUCTIONS PROVIDED, PT REPORTED UNDERSTANDING. PT PROVIDED WITH CLEAN DRESSINGS AND WAS EDUCATED HOW AND WHEN TO CHANGE DRESSINGS. PT WAS PROVIDED WITH WRITTEN PRESCRIPTION FOR PAIN MEDICATION. ALL OTHER PRESCRIPTIONS WERE FAXED TO [facility] PER PT REQUEST. PT STATES HE HAS CALLED FOR A RIDE HOME. VSS.
--- NOTE | 2023-08-21 16:30 | NUR ---
PT DISHARGED HOME. PT DID NOT NOTIFY STAFF WHEN HE LEFT.
== END 2023-08-21 16:35 | disposition home or self-care (01) | DRG 853 ==
LOC: ER 09:22 → SURS 13:54
PROVIDERS: Family Medicine; Internal Medicine; Orthopaedic Surgery; Orthopaedic Surgery Sports Medicine; Physician Assistant; ADMIT Student in an Organized Health Care Education/Training Program
PROC: 3E03329 Introduction of Other Anti-infective into Peripheral Vein, Percutaneous Approach (ICD-10-PCS; 2023-08-16)
PROC: 0JBL0ZZ Excision of Right Upper Leg Subcutaneous Tissue and Fascia, Open Approach (ICD-10-PCS; principal; 2023-08-16 12:45)
PROC: 0KBQ0ZZ Excision of Right Upper Leg Muscle, Open Approach (ICD-10-PCS; 2023-08-20)
PROC: 30233N1 Transfusion of Nonautologous Red Blood Cells into Peripheral Vein, Percutaneous Approach (ICD-10-PCS; 2023-08-20)
DX: A41.02 Sepsis due to Methicillin resistant Staphylococcus aureus (principal); A48.0 Gas gangrene; L02.415 Cutaneous abscess of right lower limb; D62 Acute posthemorrhagic anemia; L03.115 Cellulitis of right lower limb; R22.0 Localized swelling, mass and lump, head; D64.9 Anemia, unspecified; F10.90 Alcohol use, unspecified, uncomplicated; F14.90 Cocaine use, unspecified, uncomplicated; L98.499 Non-pressure chronic ulcer of skin of other sites with unspecified severity; F17.200 Nicotine dependence, unspecified, uncomplicated; E10.65 Type 1 diabetes mellitus with hyperglycemia; E10.42 Type 1 diabetes mellitus with diabetic polyneuropathy; I10 Essential (primary) hypertension; F41.9 Anxiety disorder, unspecified; F32.A Depression, unspecified; Z86.74 Personal history of sudden cardiac arrest; K02.9 Dental caries, unspecified; E10.9 Type 1 diabetes mellitus without complications; Z79.899 Other long term (current) drug therapy
CPT/HCPCS: 36415; 70487; 73502; 73562-RT; 73701; 73706; 76882; 80053; 80202; 81001; 82945; 82947; 83605; 83735; 84100; 84157; 85025; 85651; 86140; 86850; 86900; 86901; 86923; 87040; 87070; 87075; 87077; 87147; 87186; 87205; 89051; 89060; 94760; 96361; 96365; 96365-59; 96375; 96375-59; 97116; 97162; 97165; 97530; 97535; 99284-25; A9270; J0295; J0692; J0696; J1100; J1170; J1650; J1815; J1885; J2060; J2250; J2270; J2371; J2405; J2704; J3010; J3370; J7030; J7050; J7120; P9016; Q9967

== ENCOUNTER 2023-08-29 06:13 | Inpatient (IN) | payer OTHER ==
[2023-08-29] VITALS (15 sets, daily range): BP systolic 139–174; BP diastolic 93–111
[~2023-08-29] VITALS: Ht 172.7 cm; Wt 65.8 kg
[~2023-08-29 06:13] MED LIST changes: +BUSPIRONE HCL10 M6 PO; +DOCU100 PO; +FAMO20 PO; +GABA300 PO; +METO25ER PO; +MIRALAX11910 PO; +MUPIROCIN2210 TOP; +Norco 10-325 T1 EACH PO; +OXYC5 PO; +PROZAC2010 PO
[2023-08-29] MEDS ORDERED: FentaNYL Citrate 50 MCG/ML 2 ML Injection IV ONE (06:50)
[2023-08-29 07:27] LABS: BASOPHILS ABSOLUTE AUTO 0.05 K/mm3 (0.00-0.23); BASOPHILS PERCENT AUTO 1 % (0-2); EOSINOPHILS ABSOLUTE AUTO 0.04 K/mm3 (0.00-0.68); EOSINOPHILS PERCENT AUTO 1 % (0-6); Hematocrit 25.7 % (37.0-53.0); Hemoglobin 8.7 g/dL (13.5-17.5); IMMATURE GRAN ABSOLUTE AUTO 0.04 K/mm3 (0.00-0.10); IMMATURE GRAN PERCENT AUTO 1 % (0-1); LYMPHOCYTES ABSOLUTE AUTO 0.85 K/mm3 (0.84-5.20); LYMPHOCYTES PERCENT AUTO 11 % (21-46); MONOCYTES ABSOLUTE AUTO 0.47 K/mm3 (0.16-1.47); MONOCYTES PERCENT AUTO 6 % (4-13); Mean Corpuscular HGB 30.2 pg (26.0-34.0); Mean Corpuscular HGB Conc 33.9 g/dL (31.5-36.5); Mean Corpuscular Volume 89 fL (80-100); Mean Platelet Volume 8.8 fL (9.1-12.4); NEUTROPHILS ABSOLUTE AUTO 6.66 K/mm3 (1.96-9.15); NEUTROPHILS PERCENT AUTO 82 % (41-73); Platelet Count 530 K/mm3 (150-400); RDW Coefficient Variation 13.2 % (11.7-14.2); RDW Standard Deviation 42.8 fL (35.1-46.3); Red Blood Cell Count 2.88 M/mm3 (4.30-5.90); White Blood Cell Count 8.11 K/mm3 (4.00-11.30)
[2023-08-29 07:36] LABS: Bun/Creatinine Ratio 32.3 (12.0-20.0); C-REACTIVE PROTEIN, EXT RANGE 1.98 mg/dL (0.000-0.300); Calcium, Blood 8.9 mg/dL (8.5-10.1); Creatinine, Blood 0.56 mg/dL (0.60-1.20); Potassium, Blood 4.4 mmol/L (3.5-5.5)
[2023-08-29] MEDS ORDERED: Morphine Sulfate 4 MG/1 ML Injection IV ONE (11:10)
[2023-08-29] MEDS ORDERED: FLU VACC QS2023-24(6MOS UP)/PF 60 MCG/0.5 ML SYRINGE IM ONE (11:20)
[2023-08-29] MEDS ORDERED: HYDROmorphone HCl/Pf 1MG SYR IV PRN (11:20)
[2023-08-29] MEDS ORDERED: HYDROcodone 5-APAP 325 TAB PO PRN ×2 (11:25→14:10)
[2023-08-29] MEDS ORDERED: Ondansetron HCl 2 MG / ML 2ML Vial IV PRN (11:25)
[2023-08-29] MEDS ORDERED: NS 1,000 ML IV SCH ×2 (11:25→14:50)
[2023-08-29] MEDS ORDERED: Naloxone HCl 0.4MG / ML 1ML Vial IV PRN (11:25)
[2023-08-29] MEDS ORDERED: Insulin Regular 100 UNIT/ML 10ML Vial SC SCH ×2 (11:30→16:30)
[2023-08-29] MEDS ORDERED: Gabapentin 300 MG Cap PO SCH ×2 (14:00→14:10)
[2023-08-29] MEDS ORDERED: Lactated Ringer's 1,000 ML IV SCH (14:15)
[2023-08-29] MEDS ORDERED: Rocuronium Bromide 10 MG/ML 5ML Injection IV ONE (15:05)
[2023-08-29] MEDS ORDERED: Ondansetron HCl 2 MG / ML 2ML Vial ONE (15:05)
[2023-08-29] MEDS ORDERED: FentaNYL Citrate 50 MCG/ML 2 ML Injection ONE ×2 (15:05→15:44)
[2023-08-29] MEDS ORDERED: Metoclopramide HCl 5MG / ML 2ML Vial ONE (15:05)
[2023-08-29] MEDS ORDERED: propofoL 20 ML IV ONE (15:05)
[2023-08-29] MEDS ORDERED: CeFAZolin Sodium 2,000 MG in NS 50 ML IV SCH (15:05)
--- NOTE | 2023-08-29 15:35 | NUR ---
PRE-OP NOTE PT A&OX4, BREATHING RA, ANXIOUS AND WITHDRAWN. PT UNINTERESTED IN DISCUSSING PERTINENT MEDICAL HISTORY/MEDICATIONS C NURSING STAFF. PT APPEARS PALE. PT CELL PHONE AND WALKER BROUGHT TO PACU PRE-OP, ALL OTHER BELONGINGS STOWED BELOW STRETCHER. Patient confirms NPO status and agrees with scheduled surgery. Pre-Op teaching done. Pt verbalizes understanding.
[2023-08-29] MEDS ORDERED: Vancomycin HCl 1000 MG ADDvantage ONE (15:48)
[2023-08-29] MEDS ORDERED: Bupivacaine 0.5% HCl 5 MG/ML 30MLVIAL ONE (16:09)
[2023-08-29] MEDS ORDERED: HYDROmorphone HCl/Pf 1MG SYR ONE (16:40)
[2023-08-29] MEDS ORDERED: buPROPion HCL 150 MG TAB.SR.12H PO SCH (21:00)
[2023-08-29] MEDS ORDERED: Metoprolol Succinate 25 MG TABCR PO SCH ×2 (21:00)
[2023-08-29] MEDS ORDERED: Trimethoprim/Sulfamethoxazole DS Tab PO SCH ×2 (21:00)
[2023-08-29] MEDS ORDERED: Famotidine 10 MG/ML 2ML Vial IV SCH (21:00)
[2023-08-29] MEDS ORDERED: Insulin Glargine-Yfgn 100 Unit/mL 3 ML SYR SC SCH (21:00)
[2023-08-29] MEDS ORDERED: Docusate Sodium 100 MG Cap PO SCH ×2 (21:00)
[2023-08-29] MEDS ORDERED: BusPIRone HCl 10 MG Tab PO SCH ×2 (21:00)
--- NOTE | 2023-08-29 22:00 | NUR ---
PATIENTS BLOOD SUGAR IN THE 400'S; HOSPITALIST CONTACTED. CONTACTED HOSPITALIST ARJUN ROLDAN, D/T PATIENTS ELEVATED BLOOD SUGAR AND PATIENT HAVING A LATE LUNCH THAT DAD HAD BROUGHT IN FOR PATIENT. ORDERS GIVEN TO ADMINISTER 1630 INSULIN FOR PATIENTS DINNER AND HS SLIDING SCALE PER EMAR. PATIENT IS PLEASANT AND COOPERATIVE WITH CARE. PATIENT HAS WOUND VAC RUNNING.
[2023-08-30 00:22] VITALS: BP 142/102
[2023-08-30 03:10] VITALS: BP 146/104
--- NOTE | 2023-08-30 03:33 | NUR ---
PATIENT REPORTS NO RELIEF FROM ORAL PRN PAIN MEDICATION. PATIENT HAS IV PAIN MEDICATION-SEE EMAR. PATIENTS PAIN RETURNS PRIOR TO NEXT AVALIABLE PRN PAIN MEDICATION. PATIENT REPORTS THAT HE WAS TAKING OXYCODONE AT HOME FOLLOWING A PRECEDURE TO HIS RIGHT LEG A WEEK PRIOR TO CURRENT HOSPITALIZATION.
[2023-08-30] MEDS ORDERED: OxyCODONE HCL 5 MG TAB PO PRN ×3 (03:45→17:50)
[2023-08-30] MEDS ORDERED: HYDROmorphone HCl/Pf 1MG SYR IV PRN (04:10)
[2023-08-30 05:45] LABS: BASOPHILS ABSOLUTE AUTO 0.06 K/mm3 (0.00-0.23); BASOPHILS PERCENT AUTO 1 % (0-2); EOSINOPHILS ABSOLUTE AUTO 0.11 K/mm3 (0.00-0.68); EOSINOPHILS PERCENT AUTO 2 % (0-6); Hematocrit 26.3 % (37.0-53.0); Hemoglobin 8.8 g/dL (13.5-17.5); IMMATURE GRAN ABSOLUTE AUTO 0.03 K/mm3 (0.00-0.10); IMMATURE GRAN PERCENT AUTO 0 % (0-1); LYMPHOCYTES ABSOLUTE AUTO 1.03 K/mm3 (0.84-5.20); LYMPHOCYTES PERCENT AUTO 14 % (21-46); MONOCYTES ABSOLUTE AUTO 0.61 K/mm3 (0.16-1.47); MONOCYTES PERCENT AUTO 8 % (4-13); Mean Corpuscular HGB 29.9 pg (26.0-34.0); Mean Corpuscular HGB Conc 33.5 g/dL (31.5-36.5); Mean Corpuscular Volume 90 fL (80-100); Mean Platelet Volume 8.6 fL (9.1-12.4); NEUTROPHILS ABSOLUTE AUTO 5.43 K/mm3 (1.96-9.15); NEUTROPHILS PERCENT AUTO 75 % (41-73); Platelet Count 573 K/mm3 (150-400); RDW Coefficient Variation 13.3 % (11.7-14.2); RDW Standard Deviation 43.2 fL (35.1-46.3); Red Blood Cell Count 2.94 M/mm3 (4.30-5.90); White Blood Cell Count 7.27 K/mm3 (4.00-11.30)
[2023-08-30] MEDS ORDERED: HYDROmorphone HCl/Pf 1MG SYR IV SCH (06:00)
--- NOTE | 2023-08-30 06:24 | NUR ---
SHIFT SUMMARY. PATIENT IS PLEASANT AND COOPERATIVE WITH CARE. PATIENT ABLE TO MAKE HIS NEEDS KNOWN. PAIN ASSESSED; PATIENT C/O PAIN-MEDICATED PER EMAR. NO ACUTE EVENTS NOTED THIS EVENING. WORKING ON PAIN CONTROL. PATIENT SLEPT OFF AND ON THROUGH OUT NIGHT. NO EVENTS NOTED THIS SHIFT. BED IS LOCKED IN THE LOWEST POSITION WITH CALL LIGHT IN REACH. NO S/S OF DISTRESS NOTED AT THIS TIME.
[2023-08-30 06:28] LABS: Albumin/Globulin Ratio 0.4 (0.8-1.8); Bilirubin, Total 0.2 mg/dL (0.1-1.0); Bun/Creatinine Ratio 25.5 (12.0-20.0); Calcium, Blood 8.7 mg/dL (8.5-10.1); Creatinine, Blood 0.59 mg/dL (0.60-1.20); Globulin, Blood 4.6 g/dL (2.2-4.0); Potassium, Blood 4.2 mmol/L (3.5-5.5); Total Protein, Blood 6.6 g/dL (6.4-8.2)
[2023-08-30 07:43] VITALS: BP 159/109
[2023-08-30] MEDS ORDERED: FLUoxetine HCL 20 MG CAP PO SCH ×2 (09:00)
[2023-08-30 14:26] VITALS: BP 152/112
--- NOTE | 2023-08-30 16:06 | NUR ---
Patient is lying in bed and alert. He tells me about the events that led to his readmission to the hospital, the surgery that followed and the recovery mode that he is currently in. He speaks about the excellent care he has received, the struggles to manage at home (get groceries, cook clean, poultry picker perscriptions etc.) and about his concerns for d/c the hospital facing the same challenges. We talk about the family support but the lack of time and resources to bring the tangible aid that he needs. We explore paths through these struggles and I provide therapeutic listening and prayer. Patient responded well and showed signs of an elevated mood.
[2023-08-30] MEDS ORDERED: Prinivil10 MG PO (16:12)
[2023-08-30 17:10] VITALS: BP 143/103
[2023-08-30] MEDS ORDERED: Ondansetron HCl 2 MG / ML 2ML Vial IV PRN (17:50)
[2023-08-30] MEDS ORDERED: Vancomycin HCL 1,000 MG in NS 100 ML IV ONE (18:10)
[2023-08-30 20:26] VITALS: BP 147/103
[2023-08-31] VITALS (7 sets, daily range): BP systolic 134–152; BP diastolic 99–109
[2023-08-31] MEDS ORDERED: Vancomycin HCL 750 MG in NS 100 ML IV SCH (03:00)
--- NOTE | 2023-08-31 04:34 | NUR ---
SHIFT SUMMARY "DARRON" WAS ALERT AND FULLY ORIENTED AT SHIFT ASSESSMENT, BUT DROWSY AND GROGGY D/T MIGRAINE TODAY. PT HAVING SOME NAUSEA MANAGED WITH ZOFRAN AND PHENERGAN, NO EMESIS THIS SHIFT. PT COMPLAINS OF PAIN THAT IS VERY GENERALIZED AND HARD TO ISOLATE TO ABDOMINOPELVIC REGION, R FLANK/SIDE, AND NECK/HEAD. PAIN MANAGED RELATIVELY WELL WITH CURRENT MEDS. NO ACUTE EVENTS TONIGHT, NO CHANGES TO PT CONDITION. PT RESTING IN BED AT A LOW POSITION WITH CALL LIGHT IN REACH. PT MIGRAINE CAME BACK IN THE NIGHT, DR BERGERON ORDERED SUMATRIPTAN, WHICH WAS ADMINISTERED.
[2023-08-31] MEDS ORDERED: ALPRAZolam 0.25 MG Tab PO PRN (11:45)
[2023-08-31] MEDS ORDERED: Propranolol HCL 60 MG CAPCR PO SCH (12:00)
[2023-08-31] MEDS ORDERED: Lisinopril 10 MG Tab PO SCH ×2 (12:00→22:00)
--- NOTE | 2023-08-31 12:18 | NUR ---
WOUND VAC: NEW CANISTER PLACED 08/31/23 AT 12:18 BY SHANE
--- NOTE | 2023-08-31 14:20 | NUR ---
DR. PIEDRA SAW THE PATIENT THIS AFTERNOON. CARGO BROKER WILL CHANGE THE WOUND VAC TODAY, 08/31/23. DR. PIEDRA ASKED THIS RN TO HAVE THE CIGAR BRANDER TEXT HIM BEFORE THE WOUND VAC CHANGE ON Sunday09/03/23.
[2023-08-31] MEDS ORDERED: HydrALAZINE HCl 10 MG Tab PO SCH (17:15)
--- NOTE | 2023-08-31 17:53 | NUR ---
PATIENT IS ALERT AND ORIENTED AND COOPERATIVE WITH CARE. PAIN MANAGED PER EMAR. WOUND VAC DRESSING CHANGED TODAY BY CONVENTION MANAGER. PICTURE OF WOUND IN THE CHART. DR. PIEDRA SAW THE PATIENT AT THE BEDSIDE TODAY AND ASKED THAT THE ENVIRONMENTAL SUSTAINABILITY MANAGER CONTACT HIM VIA TEXT OR CALL PRIOR TO CHANGING THE WOUND VAC ON Sunday09/03/23 SO HE CAN SEE THE WOUND. THE PATIENT IS HYPERTENSIVE, NEW MEDICATIONS STARTED TODAY FOR THAT. WILL CONTINUE TO MONITOR
[2023-08-31 18:39] LABS: Vancomycin, Trough 11.4 ug/mL (5.0-10.0)
[2023-08-31] MEDS ORDERED: OMEP20ER PO (19:12)
[2023-08-31] MEDS ORDERED: BACTRIM DS TAB1 EAC6 PO (19:20)
[2023-08-31] MEDS ORDERED: BUPR150ER PO (19:20)
[2023-08-31] MEDS ORDERED: BASAGLAR K100 UNIT/4 SC (19:32)
[2023-08-31] MEDS ORDERED: TraZODone HCl 100 MG Tab PO SCH (21:00)
[2023-08-31] MEDS ORDERED: Famotidine 20 MG Tab PO SCH (21:00)
[2023-08-31] MEDS ORDERED: Insulin Glargine-Yfgn 100 Unit/mL 3 ML SYR SC SCH ×2 (21:00)
[2023-09-01 04:06] VITALS: BP 104/71
--- NOTE | 2023-09-01 04:36 | NUR ---
SHIFT SUMMARY UBALDO WAS ALERT AND FULLY ORIENTED ON ASSESSMENT. NO NEW COMPLAINTS, NO NOTED CHANGES TO CONDITION. PT PAIN WAS EASIER TO CONTROL TONIGHT AND PT WAS ABLE TO SLEEP, TRAZODONE ORDERED FOR THIS PURPOSE, I CONSULTED PHARMACY BEFORE OVERRIDING THE TRAZODONE POTENTIAL INTERRACTION WITH TRICYCLIC ANTIDEPRESSANT. NO ACUTE EVENTS, NO CHANGES TO CONDITION. WOUND VAC DRESSING CDI, PT RESTING IN BED WITH CALL LIGHT IN REACH.
[2023-09-01 07:50] VITALS: BP 119/86
[2023-09-01] MEDS ORDERED: HydrALAZINE HCl 10 MG Tab PO SCH (09:00)
[2023-09-01 16:20] VITALS: BP 118/83
--- NOTE | 2023-09-01 17:20 | NUR ---
Pt remains A&Ox3 this shift. VSS. RLE pain managed with current regime. Wound vac in place. Resp even nonlabored on RA. Voiding per urinal. Extensive education on diabetes, diet and wound healing this shift. Pt with additional food/sub sandwiches, snacks in drawer from family. Pt states he was educated he can eat what he wants, because the insulin will cover his high sugar levels. Pbx Wire Chief consult noted. No acute changes this shift. Will continue to monitor.
[2023-09-01 18:26] LABS: Creatinine, Blood 0.81 mg/dL (0.60-1.20); Vancomycin, Trough 18.2 ug/mL (5.0-10.0)
[2023-09-01 20:30] VITALS: BP 130/91
[2023-09-02 03:33] VITALS: BP 104/72
--- NOTE | 2023-09-02 05:24 | NUR ---
SHIFT SUMMARY PATIENT IS ALERT AND ORIENTED. PATIENT HAS HAD NO ACUTE EVENTS THIS SHIFT. PATIENT HAS BEEN IND IN ROOM THIS SHIFT. PATIENT HAS COMPLAINED OF PAIN THROUGHOUT SHIFT AND MEDICATED PER EMAR. PATIENT HAS NOT COMPLAINED OF SOB, NAUSEA OR VOMITTING THIS SHIFT. PATIENT HAS BEEN EDUCATED ON DIABETES AND WAS NOT GIVEN HIS CARB COUNT DOSE OF INSULIN AFTER CONSULTING WITH PATIENT HE DECLINED HIS INSULIN. BED IN LOCKED AND LOWEST POSITION. CALL LIGHT IN PLACE. WILL MONITOR UNTIL SHIFT CHANGE.
[2023-09-02 07:49] VITALS: BP 126/89
[2023-09-02] MEDS ORDERED: HYDROmorphone HCl/Pf 1MG SYR IV PRN (10:05)
[2023-09-02] MEDS ORDERED: OxyCODONE HCL 5 MG TAB PO PRN (10:05)
[2023-09-02] MEDS ORDERED: Doxycycline Hyclate 100 MG TAB PO SCH (15:00)
[2023-09-02] MEDS ORDERED: Amoxicillin/Clavulanate K 875 MG Tab PO SCH (15:00)
[2023-09-02 16:17] VITALS: BP 126/89
[2023-09-02] MEDS ORDERED: Ondansetron 4 MG TAB PO PRN (17:05)
--- NOTE | 2023-09-02 17:39 | NUR ---
SHIFT SUMMARY Pt remains A&Ox3 this shift. VSS. RLE pain managed with po meds. Pt transitioned to PO antibix. Plan is to dc home and follow up with wound care clinic for wound vac. Pt agrees with plan. Pt ambulated to bathroom with SBA, sat up in chair this pm. No acute distress noted or verbalized. Will continue to monitor this shift.
[2023-09-02 20:26] VITALS: BP 125/93
[2023-09-02] MEDS ORDERED: Lactobacil 2-S.Thermo-Bifido 1 1 Cap PO SCH (21:00)
[2023-09-02] MEDS ORDERED: Docusate Sodium 100 MG Cap PO SCH (21:00)
[2023-09-03 04:11] VITALS: BP 124/73
--- NOTE | 2023-09-03 05:00 | NUR ---
SHIFT SUMMARY PATIENT IS ALERT AND ORIENTED. PATIENT HAS HAD NO ACUTE EVENTS THIS SHIFT. PATIENT HAS COMPLAINED OF PAIN THIS AND MEDICATED PER EMAR. PATIENT HAS COMPLAINED OF NAUSEA AND MEDICATED PER EMAR. PATIENT HAS HAD NO COMPLAINTS OF VOMITTING OR SOB. PATIENT HAS HAD COMPLAINTS OF CONSTIPATION AND OBTAINED ORDER FOR STOOL SOFTNER, PATIENT ALSO WAS GIVEN A COUPLE OF PRUNE JUICES FOR HELPING CONSTIPATION WITH LITTLE SUCCESS. PATIENT IS A POSSIBLE DISCHARG TODAY. PATIENTS WOUND VAC IS C/D/I AND IS WORKING WELL. BED IN LOCKED AND LOWEST POSITION. CALL LIGHT IN PLACE. WILL MONITOR UNTIL SHIFT CHANGE.
[2023-09-03 05:18] LABS: BASOPHILS ABSOLUTE AUTO 0.05 K/mm3 (0.00-0.23); BASOPHILS PERCENT AUTO 1 % (0-2); EOSINOPHILS ABSOLUTE AUTO 0.15 K/mm3 (0.00-0.68); EOSINOPHILS PERCENT AUTO 3 % (0-6); Hematocrit 25.7 % (37.0-53.0); Hemoglobin 8.4 g/dL (13.5-17.5); IMMATURE GRAN ABSOLUTE AUTO 0.01 K/mm3 (0.00-0.10); IMMATURE GRAN PERCENT AUTO 0 % (0-1); LYMPHOCYTES PERCENT AUTO 25 % (21-46); MONOCYTES ABSOLUTE AUTO 0.49 K/mm3 (0.16-1.47); MONOCYTES PERCENT AUTO 10 % (4-13); Mean Corpuscular HGB 29.6 pg (26.0-34.0); Mean Corpuscular HGB Conc 32.7 g/dL (31.5-36.5); Mean Corpuscular Volume 91 fL (80-100); NEUTROPHILS ABSOLUTE AUTO 2.82 K/mm3 (1.96-9.15); NEUTROPHILS PERCENT AUTO 60 % (41-73); Platelet Count 497 K/mm3 (150-400); RDW Coefficient Variation 13.5 % (11.7-14.2); Red Blood Cell Count 2.84 M/mm3 (4.30-5.90); White Blood Cell Count 4.72 K/mm3 (4.00-11.30)
[2023-09-03 05:35] LABS: Alanine Aminotransfer (ALT/SGP 19 U/L (12-78); Albumin/Globulin Ratio 0.5 (0.8-1.8); Alk Phos 60 U/L (50-136); Anion Gap 2 mmol/L (6-16); Aspartate Aminotrans (AST/SGOT 21 U/L (12-37); Bilirubin, Total 0.2 mg/dL (0.1-1.0); Blood Urea Nitrogen 29 mg/dL (8-24); Bun/Creatinine Ratio 26.4 (12.0-20.0); C-REACTIVE PROTEIN, EXT RANGE <0.290 mg/dL (0.000-0.300); CO2, Blood 28 mmol/L (21-32); Calcium, Blood 8.5 mg/dL (8.5-10.1); Chloride, Blood 108 mmol/L (98-108); Globulin, Blood 4.1 g/dL (2.2-4.0); Glomerular Filtration Rate 93 (60-); Glucose, Blood 170 mg/dL (70-99); Potassium, Blood 4.2 mmol/L (3.5-5.5); Sodium, Blood 138 mmol/L (136-145); Total Protein, Blood 6.1 g/dL (6.4-8.2)
[2023-09-03 08:29] VITALS: BP 124/93
[2023-09-03 13:03] VITALS: BP 135/94
--- NOTE | 2023-09-03 15:00 | NUR ---
WOUND CARE R THIGH WOUND VAC DRESSING CHANGED PER ORDER. ONE PIECE BLACK FOAM REMOVED, WOUND CLEANSED NS. SKIN PREP AND TRANSPARENT FILM TO PERIWOUND. ONE PIECE BLACK FOAM REAPPLIED. VAC SET TO CONTINUOUS 120 MMHG. PT TOLERATED WELL
--- NOTE | 2023-09-03 17:01 | NUR ---
SHIFT SUMMARY PT AXO, COOPERATIVE WITH CARE BUT EMOTIONALLY LABILE AND IRRITABLE AT TIMES. CRYING AT TIMES WELL. VSS. PT WOUND VAC WAS OFF AT START OF SHIFT R/T BATTERY. POWER SOURCE RECONNECTED AT START OF SHIFT AND SUCTION RESUMED, WOUND CARE NURSE NOTIFIED WHO CHANGED DRESSING, SEE NOTE AND ORDERS. PT MEDICATED FOR PAIN PER EMAR. PT ASKING FOR LARGE AMOUNT OF SNACKS AND DRINKS THROUGHOUT THE SHIFT. CBG PER ORDERS, SEE RESULTS AND MEDICATED PER EMAR WITH SLIDING SCALE COVERAGE AND CARB COUNT FOR MEALS. BED IN LOW POSITION, CALL LIGHT WITHIN REACH. PT EAGER TO BE DISCHARGED HOME AND STATES THAT HE REFUSES TO GO TO SNF.
[2023-09-03 20:29] VITALS: BP 139/91
[2023-09-04 02:59] VITALS: BP 123/79
--- NOTE | 2023-09-04 04:34 | NUR ---
SHIFT SUMMARY PT A&OX4 AND ANSWERS QUESTIONS APPROPRIATELY. PT RECEIVED PRN MEDICATIONS FOR PAIN WHEN REQUESTED AND NONPHARMACOLOGICAL INTERVENTIONS SUCH COLD THERAPY GIVEN TO REDUCE PAIN. HS MEDICATIONS ADMINISTERED. PT SLEPT MOST OF SHIFT WITH EYES CLOSED AND RESPIRATIONS EVEN AND UNLABORED. NO ACUTE EVENTS AT THIS TIME. VSS, BP ELEVATED AND HYDRALAZINE ADMINISTERED, REST OF VSS. NO COMPLAINTS OF CP OR SOB. PT LEFT IN A POSITION OF SAFETY WITH PROPER FALL PRECAUTIONS IN PLACE AND CALL LIGHT IN REACH.
[2023-09-04 04:59] LABS: BASOPHILS ABSOLUTE AUTO 0.05 K/mm3 (0.00-0.23); BASOPHILS PERCENT AUTO 1 % (0-2); EOSINOPHILS ABSOLUTE AUTO 0.14 K/mm3 (0.00-0.68); EOSINOPHILS PERCENT AUTO 3 % (0-6); Hematocrit 27.2 % (37.0-53.0); Hemoglobin 9.1 g/dL (13.5-17.5); IMMATURE GRAN ABSOLUTE AUTO 0.02 K/mm3 (0.00-0.10); IMMATURE GRAN PERCENT AUTO 1 % (0-1); LYMPHOCYTES ABSOLUTE AUTO 1.04 K/mm3 (0.84-5.20); LYMPHOCYTES PERCENT AUTO 24 % (21-46); MONOCYTES ABSOLUTE AUTO 0.46 K/mm3 (0.16-1.47); MONOCYTES PERCENT AUTO 11 % (4-13); Mean Corpuscular HGB 30.2 pg (26.0-34.0); Mean Corpuscular HGB Conc 33.5 g/dL (31.5-36.5); Mean Corpuscular Volume 90 fL (80-100); Mean Platelet Volume 9.3 fL (9.1-12.4); NEUTROPHILS ABSOLUTE AUTO 2.65 K/mm3 (1.96-9.15); NEUTROPHILS PERCENT AUTO 61 % (41-73); Platelet Count 460 K/mm3 (150-400); RDW Coefficient Variation 13.4 % (11.7-14.2); RDW Standard Deviation 44.7 fL (35.1-46.3); Red Blood Cell Count 3.01 M/mm3 (4.30-5.90); White Blood Cell Count 4.36 K/mm3 (4.00-11.30)
[2023-09-04 05:49] LABS: Albumin/Globulin Ratio 0.5 (0.8-1.8); Bilirubin, Total 0.1 mg/dL (0.1-1.0); Bun/Creatinine Ratio 25.2 (12.0-20.0); Calcium, Blood 8.8 mg/dL (8.5-10.1); Creatinine, Blood 0.87 mg/dL (0.60-1.20); Globulin, Blood 4.1 g/dL (2.2-4.0); Potassium, Blood 4.3 mmol/L (3.5-5.5); Total Protein, Blood 6.1 g/dL (6.4-8.2)
[2023-09-04 07:43] VITALS: BP 138/98
--- NOTE | 2023-09-04 13:14 | NUR ---
Patient is sitting on a chair and laert. He shares about some unfortunate events that have happened during his stay at [facility] with our medical staff and food services. Patient has voiced his concerns with our patient advocate and one concern (his missing walker) was able to be resolved, with some digging, and it was located and brought to him. We talk at length about some deep subjects such as; meaning and value, God's role in our lives and in suffering, the wisdom gained from tragic events and the possiblities of his future. In the discussion I add theological insights and gentle disability counselor. I also provide prayer and spiritual guidance. Patient responded well and showed signs of catharsis. I will continue to remain available to patient and family.
[2023-09-04] MEDS ORDERED: AMOCLA875 PO (13:21)
[2023-09-04] MEDS ORDERED: OXYC5 PO (13:21)
[2023-09-04] MEDS ORDERED: LISI20 PO (13:21)
--- NOTE | 2023-09-04 13:55 | NUR ---
WOUND CARE WOUND VAC DRESSING CHANGED OUT OF FREQUENCY. INGRAM&NEPHEW WOUND VAC DRESSING TAKEN DOWN TO APPLY HOME [employer] VAC. PT REPORTS ANXIETY OVER HH COMING TOMORROW AND CHANGING WOUND VAC DRESSING AGAIN. CARE MANAGEMENT RN JORGE LUIS REPORTS HE HAS REQUESTED TO DELAY HH UNTIL SUNDAY. THIS WILL PUT THE VAC CHANGE OUT OF FREQUENCY TWICE THIS WEEK. THIS RN ENCOURAGED PT TO ALLOW HH TO TAKE HIM ON SERVICE TOMORROW SO HE WILL HAVE HELP IF VAC MALFUNCTIONS ALSO TO ADHERE TO SUN, SUN, SUN VAC CHANGES THAT WOUND CLINIC AND HH FOLLOW. ALSO EDUCATED PT THAT HH WILL HELP WITH DC MEDICATION MANAGEMENT AND DM EDUCATION PT HAS STOPPED TAKING INSULIN BEFORE ADMIT. HE VERBALIZED UNDERSTANDING
--- NOTE | 2023-09-04 14:25 | NUR ---
DISCAHRGE NO IV TO REMOVED. AWAITING RIDE. HARD SCRIPT FOR OXYCODONE GIVEN TO PT. COPY IN CHART. HOME WOUND VAC DONE. SUPPLY OX IN ROOM. CARE ONGOING.
--- NOTE | 2023-09-04 14:53 | NUR ---
erlin felix helped out via w/c. he declined 1400 medications. staed he will take them at home. care ongoing.
== END 2023-09-04 14:53 | disposition home health service (06) | DRG 902 ==
LOC: ER 06:13 → MEDS 14:11
PROVIDERS: Family Medicine; Hospitalist; Orthopaedic Surgery Sports Medicine; Student in an Organized Health Care Education/Training Program; ADMIT Family Medicine
PROC: 0JCN0ZZ Extirpation of Matter from Right Lower Leg Subcutaneous Tissue and Fascia, Open Approach (ICD-10-PCS; 2023-08-29)
PROC: 3E0T3BZ Introduction of Anesthetic Agent into Peripheral Nerves and Plexi, Percutaneous Approach (ICD-10-PCS; 2023-08-29)
PROC: 0JBN0ZZ Excision of Right Lower Leg Subcutaneous Tissue and Fascia, Open Approach (ICD-10-PCS; principal; 2023-08-29 14:30)
DX: L76.32 Postprocedural hematoma of skin and subcutaneous tissue following other procedure (principal); F32.1 Major depressive disorder, single episode, moderate; L02.415 Cutaneous abscess of right lower limb; L02.811 Cutaneous abscess of head [any part, except face]; B95.61 Methicillin susceptible Staphylococcus aureus infection as the cause of diseases classified elsewhere; E10.65 Type 1 diabetes mellitus with hyperglycemia; D64.9 Anemia, unspecified; Y83.8 Other surgical procedures as the cause of abnormal reaction of the patient, or of later complication, without mention of misadventure at the time of the procedure; K21.9 Gastro-esophageal reflux disease without esophagitis; F41.1 Generalized anxiety disorder; I10 Essential (primary) hypertension; E10.42 Type 1 diabetes mellitus with diabetic polyneuropathy; Z86.74 Personal history of sudden cardiac arrest; Z79.899 Other long term (current) drug therapy; Z79.4 Long term (current) use of insulin; Z79.891 Long term (current) use of opiate analgesic; I25.2 Old myocardial infarction; Z87.891 Personal history of nicotine dependence
CPT/HCPCS: 36415; 80048; 80053; 80202; 82565; 82947; 85025; 85651; 86140; 87071; 87075; 87205; 94762; 96374-59; 96375-59; 99284-25; A9270; J0690; J1170; J1815; J2270; J2405; J2704; J2765; J3010; J3370; J7030

== ENCOUNTER 2023-09-09 11:26 | Emergency (ER) | payer OTHER ==
[~2023-09-09] VITALS: Ht 172.7 cm; Wt 65.8 kg
[~2023-09-09 11:26] MED LIST changes: +BACTRIM DS TAB1 EAC6 PO; +BASAGLAR K100 UNIT/4 SC; +BUPR150ER PO; +LISI20 PO; +Prinivil10 MG PO
[2023-09-09 12:14] VITALS: BP 152/103
== END 2023-09-09 16:38 | disposition left against medical advice (07) ==
LOC: ER 11:26
DX: Z48.01 Encounter for change or removal of surgical wound dressing (principal); Z53.29 Procedure and treatment not carried out because of patient's decision for other reasons
CPT/HCPCS: 82947; 99281

== ENCOUNTER 2023-09-10 14:38 | Emergency (ER) | payer OTHER ==
[~2023-09-10] VITALS: Ht 172.7 cm; Wt 63.5 kg
[2023-09-10 14:56] VITALS: BP 123/80
== END 2023-09-10 16:00 | disposition home or self-care (01) ==
LOC: ER 14:38
DX: Z48.817 Encounter for surgical aftercare following surgery on the skin and subcutaneous tissue (principal); E10.9 Type 1 diabetes mellitus without complications; Z79.899 Other long term (current) drug therapy
CPT/HCPCS: 99282

== ENCOUNTER 2023-09-17 08:00 | Day surgery (SDC) | payer OTHER ==
[2023-09-17] MEDS ORDERED: Lidocaine HCl 4% Cream 5 GM ONE (12:23)
== END 2023-09-18 22:36 | disposition home or self-care (01) ==
LOC: WOUND 08:00
DX: S81.801D Unspecified open wound, right lower leg, subsequent encounter (principal); I10 Essential (primary) hypertension; E11.622 Type 2 diabetes mellitus with other skin ulcer
CPT/HCPCS: A9270; G0463

== ENCOUNTER 2024-09-25 16:47 | Emergency (ER) | payer OTHER ==
[~2024-09-25] VITALS: Ht 172.7 cm; Wt 63.5 kg
[2024-09-25 17:22] LABS: BASOPHILS ABSOLUTE AUTO 0.02 K/mm3 (0.00-0.23); BASOPHILS PERCENT AUTO 0 % (0-2); EOSINOPHILS ABSOLUTE AUTO 0.01 K/mm3 (0.00-0.68); EOSINOPHILS PERCENT AUTO 0 % (0-6); Hematocrit 33.8 % (37.0-53.0); Hemoglobin 12.6 g/dL (13.5-17.5); IMMATURE GRAN ABSOLUTE AUTO 0.02 K/mm3 (0.00-0.10); IMMATURE GRAN PERCENT AUTO 0 % (0-1); LYMPHOCYTES PERCENT AUTO 12 % (21-46); MONOCYTES PERCENT AUTO 5 % (4-13); Mean Corpuscular HGB 31.3 pg (26.0-34.0); Mean Corpuscular HGB Conc 37.3 g/dL (31.5-36.5); Mean Corpuscular Volume 84 fL (80-100); Mean Platelet Volume 9.6 fL (9.1-12.4); NEUTROPHILS ABSOLUTE AUTO 5.54 K/mm3 (1.96-9.15); NEUTROPHILS PERCENT AUTO 83 % (41-73); Platelet Count 361 K/mm3 (150-400); RDW Coefficient Variation 11.7 % (11.7-14.2); RDW Standard Deviation 35.7 fL (35.1-46.3); Red Blood Cell Count 4.03 M/mm3 (4.30-5.90); White Blood Cell Count 6.69 K/mm3 (4.00-11.30)
[2024-09-25 18:00] LABS: Albumin, Blood 2.7 g/dL (3.4-5.0); Albumin/Globulin Ratio 0.7 (0.8-1.8); Bilirubin, Total 0.4 mg/dL (0.1-1.0); Bun/Creatinine Ratio 12.2 (12.0-20.0); Calcium, Blood 8.7 mg/dL (8.5-10.1); Creatinine, Blood 0.99 mg/dL (0.60-1.20); Globulin, Blood 3.8 g/dL (2.2-4.0); Potassium, Blood 3.4 mmol/L (3.5-5.5); Total Protein, Blood 6.5 g/dL (6.4-8.2)
[2024-09-25] MEDS ORDERED: NS 1,000 ML IV SCH (18:55)
[2024-09-25] MEDS ORDERED: Ondansetron HCl 2 MG / ML 2ML Vial IV ONE (18:55)
[2024-09-25 19:52] LABS: CORONAVIRUS COVID-19 AG Negative (NEGATIVE); INFLUENZA A AG Negative (NEGATIVE); INFLUENZA B AG Negative (NEGATIVE)
[2024-09-25 20:45] VITALS: BP 178/115
== END 2024-09-25 21:04 | disposition home or self-care (01) ==
LOC: ER 16:47
PROVIDERS: Physician Assistant; Student in an Organized Health Care Education/Training Program
DX: R07.9 Chest pain, unspecified (principal); R10.13 Epigastric pain; F17.200 Nicotine dependence, unspecified, uncomplicated; E10.9 Type 1 diabetes mellitus without complications; Z59.89 Other problems related to housing and economic circumstances; Z88.8 Allergy status to other drugs, medicaments and biological substances; Z88.9 Allergy status to unspecified drugs, medicaments and biological substances; Z88.7 Allergy status to serum and vaccine; Z88.1 Allergy status to other antibiotic agents; Z88.5 Allergy status to narcotic agent
CPT/HCPCS: 71046; 80053; 83690; 84484; 85025; 85379; 87428-QW; 93005; 93010; 96361; 96374; 99285-25; J2405; J7030

== ENCOUNTER 2024-10-10 22:53 | Inpatient (IN) | payer OTHER ==
[~2024-10-10] VITALS: Ht 172.7 cm; Wt 58.3 kg
[2024-10-10] MEDS ORDERED: Ondansetron HCl 2 MG / ML 2ML Vial IV ONE (23:15)
[2024-10-10] MEDS ORDERED: Lactated Ringer's 1,000 ML IV ONE (23:15)
[2024-10-10 23:22] LABS: Base Excess Venous 0.4 mmol/L; Bicarbonate Venous 26.6 mmol/L (24.0-30.0); PCO2 Venous 22.5 mmHg (38-42)
[2024-10-10 23:51] LABS: Beta-hydroxybutyrate 25.3 mg/dL (0.2-2.8); Magnesium, Blood 2.3 mg/dL (1.6-2.4)
[2024-10-10 23:54] LABS: CORONAVIRUS COVID-19 AG Negative (NEGATIVE); INFLUENZA A AG Negative (NEGATIVE); INFLUENZA B AG Negative (NEGATIVE)
[2024-10-10 23:59] LABS: Alanine Aminotransfer (ALT/SGP 30 U/L (12-78); Albumin, Blood 3.3 g/dL (3.4-5.0); Albumin/Globulin Ratio 0.6 (0.8-1.8); Alk Phos 118 U/L (50-136); Anion Gap 16 mmol/L (3-11); Aspartate Aminotrans (AST/SGOT 36 U/L (12-37); Bilirubin, Total 0.8 mg/dL (0.1-1.0); Blood Urea Nitrogen 32 mg/dL (8-24); Bun/Creatinine Ratio 17.3 (12.0-20.0); CO2, Blood 22 mmol/L (21-32); Calcium, Blood 10.2 mg/dL (8.5-10.1); Chloride, Blood 98 mmol/L (98-108); Creatinine, Blood 1.85 mg/dL (0.60-1.20); Globulin, Blood 5.1 g/dL (2.2-4.0); Glomerular Filtration Rate 50 (60-); Glucose, Blood 281 mg/dL (70-99); Potassium, Blood 3.2 mmol/L (3.5-5.5); Sodium, Blood 133 mmol/L (136-145); Total Protein, Blood 8.4 g/dL (6.4-8.2)
[2024-10-11] VITALS (15 sets, daily range): BP systolic 134–177; BP diastolic 93–129
[2024-10-11] MEDS ORDERED: Potassium Chl 20MEQ/Water100ML 100 ML IV ONE (00:10)
[2024-10-11] MEDS ORDERED: Haloperidol Lactate Inj. 5 MG/ML Injection IV ONE (00:20)
[2024-10-11] MEDS ORDERED: Lactated Ringer's 1,000 ML IV ONE (00:20)
[2024-10-11 00:53] LABS: BASOPHILS ABSOLUTE AUTO 0.03 K/mm3 (0.00-0.23); BASOPHILS PERCENT AUTO 0 % (0-2); EOSINOPHILS PERCENT AUTO 0 % (0-6); Hematocrit 40.9 % (37.0-53.0); IMMATURE GRAN ABSOLUTE AUTO 0.14 K/mm3 (0.00-0.10); IMMATURE GRAN PERCENT AUTO 1 % (0-1); LYMPHOCYTES ABSOLUTE AUTO 0.55 K/mm3 (0.84-5.20); LYMPHOCYTES PERCENT AUTO 3 % (21-46); MONOCYTES ABSOLUTE AUTO 1.06 K/mm3 (0.16-1.47); MONOCYTES PERCENT AUTO 5 % (4-13); Mean Corpuscular Volume 79 fL (80-100); Mean Platelet Volume 10.2 fL (9.1-12.4); NEUTROPHILS ABSOLUTE AUTO 17.67 K/mm3 (1.96-9.15); NEUTROPHILS PERCENT AUTO 91 % (41-73); NRBC ABSOLUTE 0.04 K/mm3 (0.00-0.02); NRBC Auto 0.2 /100 WBC (0.0-0.2); RDW Coefficient Variation 12.1 % (11.7-14.2); RDW Standard Deviation 34.5 fL (35.1-46.3); Red Blood Cell Count 5.17 M/mm3 (4.30-5.90)
[2024-10-11 00:55] LABS: White Blood Cell Count 20.87 K/mm3 (4.00-11.30)
[2024-10-11 00:58] LABS: Platelet Count 641 K/mm3 (150-400)
[2024-10-11] MEDS ORDERED: Metoclopramide HCl 5MG / ML 2ML Vial IV PRN (01:10)
[2024-10-11] MEDS ORDERED: NS 1,000 ML IV SCH ×2 (01:10→08:55)
[2024-10-11] MEDS ORDERED: Ondansetron HCl 2 MG / ML 2ML Vial IV PRN (01:10)
[2024-10-11] MEDS ORDERED: FentaNYL Citrate 50 MCG/ML 2 ML Injection IV PRN ×2 (01:10→07:00)
[2024-10-11] MEDS ORDERED: FLU VACC TS2024-25(6MOS UP)/PF 45 MCG/0.5 ML SYRINGE IM ONE (01:10)
[2024-10-11 01:37] LABS: Cholesterol 421 mg/dL (50-200); Triglycerides 97 mg/dL (30-140); Very Low Density Lipoprot Chol 19 mg/dL (6-28)
[2024-10-11 01:59] LABS: CHOL/HDL RATIO 2.3; HDL Cholesterol 182 mg/dL (>39); LDL/HDL RATIO 1.2; Low Density Lipoprotein Chol 220 mg/dL (0-110)
[2024-10-11] MEDS ORDERED: Insulin Glargine-Yfgn 100 Unit/mL 3 ML SYR SC SCH (02:00)
[2024-10-11] MEDS ORDERED: Metoprolol Tartrate 1 MG/ML 5 ML VIAL IV PRN (02:50)
[2024-10-11] MEDS ORDERED: LORazepam 2 MG/ML 1ML Injection IV ONE (02:56)
--- NOTE | 2024-10-11 03:13 | NUR ---
TRANSFER NOTE/PATIENT UPDATE PT TRANSFERRED TO PCU 12 AT 0155. PT A&O X4. PT NOT PARTICIPATING IN ALL QUESTIONS FOR HISTORY. FLAT AFFECT. SBP 160'S AT TIME OF ADMISSION. HR 130'S. TEMP 99.3. PT BEGAN TO BECOME MORE RESTLESS. HR INCREASED TO 140'S. SBP 180'S. MD BEAR NOTIFIED WHILE ON UNIT ABOUT PT'S HR AND BP. MD BEAR NOTIFIED AGAIN OF HR INCREASING TO 160'S AFTER SEVERAL MINUTES; THIS RN ASKING FOR INTERVENTION/MEDICATION FROM MD BEAR. MD BEAR TO BEDSIDE TO EXAMINE PATIENT. MD BEAR WITH ORDER FOR LOPRESSOR PUSH. GIVEN PER EMAR. PT REPORTED BACK PAIN, DIAPHORETIC AND VOMITING PRIOR TO LOPRESSOR PUSH. PT GIVEN FENTANYL PUSH PER EMAR. PT REPORTED RELIEF. AMBULATED BACK TO BED WITH ASSISTANCE. PT REPORTED RELIEF. SBP DOWN TO 150-160'S. HR 110-120. NS INFUSING PER EMAR. BED IN LOWEST POSITION AND CALL LIGHT WITHIN REACH.
[2024-10-11] MEDS ORDERED: HydrALAZINE HCl 20 MG / ML 1ML Vial IV PRN (05:20)
[2024-10-11 05:55] LABS: Albumin, Blood 2.7 g/dL (3.4-5.0); Albumin/Globulin Ratio 0.7 (0.8-1.8); Bilirubin, Total 0.5 mg/dL (0.1-1.0); Bun/Creatinine Ratio 18.9 (12.0-20.0); Calcium, Blood 9.1 mg/dL (8.5-10.1); Creatinine, Blood 1.59 mg/dL (0.60-1.20); Globulin, Blood 3.9 g/dL (2.2-4.0); Potassium, Blood 3.7 mmol/L (3.5-5.5); Total Protein, Blood 6.6 g/dL (6.4-8.2)
[2024-10-11 06:21] LABS: BASOPHILS ABSOLUTE AUTO 0.03 K/mm3 (0.00-0.23); BASOPHILS PERCENT AUTO 0 % (0-2); EOSINOPHILS PERCENT AUTO 0 % (0-6); Hematocrit 36.6 % (37.0-53.0); Hemoglobin 13.6 g/dL (13.5-17.5); IMMATURE GRAN ABSOLUTE AUTO 0.14 K/mm3 (0.00-0.10); IMMATURE GRAN PERCENT AUTO 1 % (0-1); LYMPHOCYTES ABSOLUTE AUTO 0.89 K/mm3 (0.84-5.20); LYMPHOCYTES PERCENT AUTO 4 % (21-46); MONOCYTES ABSOLUTE AUTO 1.49 K/mm3 (0.16-1.47); MONOCYTES PERCENT AUTO 7 % (4-13); Mean Corpuscular HGB 30.2 pg (26.0-34.0); Mean Corpuscular Volume 81 fL (80-100); Mean Platelet Volume 9.4 fL (9.1-12.4); NEUTROPHILS ABSOLUTE AUTO 19.53 K/mm3 (1.96-9.15); NEUTROPHILS PERCENT AUTO 89 % (41-73); Platelet Count 506 K/mm3 (150-400); RDW Coefficient Variation 12.2 % (11.7-14.2); RDW Standard Deviation 35.5 fL (35.1-46.3); Red Blood Cell Count 4.51 M/mm3 (4.30-5.90); White Blood Cell Count 22.08 K/mm3 (4.00-11.30)
[2024-10-11 06:22] LABS: Mean Corpuscular HGB Conc 37.2 g/dL (31.5-36.5)
[2024-10-11] MEDS ORDERED: OxyCODONE HCL 5 MG TAB PO PRN (06:25)
[2024-10-11] MEDS ORDERED: Insulin Human Lispro 100 Units/ML 3ML Syringe SC SCH ×2 (07:30→12:00)
[2024-10-11] MEDS ORDERED: Prochlorperazine Edisylate 10 mg Vial IV ONE (08:30)
[2024-10-11] MEDS ORDERED: Metoprolol Succinate 25 MG TABCR PO SCH (09:00)
[2024-10-11] MEDS ORDERED: Gabapentin 300 MG Cap PO SCH (09:00)
[2024-10-11] MEDS ORDERED: Docusate Sodium 100 MG Cap PO SCH (09:00)
[2024-10-11] MEDS ORDERED: FLUoxetine HCL 20 MG CAP PO SCH (09:00)
[2024-10-11] MEDS ORDERED: BuPROPion HCl 75 MG Tab PO SCH (09:00)
[2024-10-11] MEDS ORDERED: Enoxaparin 40 MG/0.4 ML SYR SC SCH (09:00)
[2024-10-11] MEDS ORDERED: BusPIRone HCl 5 MG Tab PO SCH (09:00)
[2024-10-11] MEDS ORDERED: Labetalol HCL 5 MG/ML 4ML Injection (Single Dose) IV ONE (09:25)
[2024-10-11 09:31] LABS: Base Excess Venous 1.6 mmol/L; Bicarbonate Venous 26.2 mmol/L (24.0-30.0); PCO2 Venous 33.2 mmHg (38-42); pH Blood Venous 7.49 (7.34-7.37)
--- NOTE | 2024-10-11 10:07 | NUR ---
THIS RN SPOKE TO DR. GONZALEZ ABOUT THE PT'S ONGOING HYPERTENSION, NAUSEA, AND TACHYCARDIA. OT 5MG IV COMPAZINE GIVEN ALONG WIH OT 10MG IV LABETALOL GIVEN. BLOOD PRESURE CYCLING Q15 MINUTES AT THIS TIME. THIS RN CALLED THE PT'S PHARMACY AND [facility] IS FAXING OVER HIS MEDICATION LIST. SEE NOTES FOR UPDATES.
[2024-10-11] MEDS ORDERED: HYDHCL25 PO (10:46)
[2024-10-11] MEDS ORDERED: OMEP20ER PO (10:49)
[2024-10-11 11:53] LABS: Bun/Creatinine Ratio 20.3 (12.0-20.0); Calcium, Blood 8.5 mg/dL (8.5-10.1); Creatinine, Blood 1.28 mg/dL (0.60-1.20); Potassium, Blood 3.4 mmol/L (3.5-5.5)
--- NOTE | 2024-10-11 16:06 | NUR ---
THIS RN CALLED DR. JAQUEZ ABOUT LOW GRADE FEVER 100.4, REOCCURENT HYPERTENSION, AND ABD CT RESULTS. DR. JAQUEZ STATED HE WILL ORDERED SOME BLOOD CULTURES THEN START ANTIBIOTICS. HE WILL ORDER TYLENOL AND MEDICATIONS FOR HYPERTENSION. SEE NOTES FOR UPDATES.
[2024-10-11] MEDS ORDERED: Acetaminophen 325 MG TABLET PO PRN (16:10)
[2024-10-11] MEDS ORDERED: Piperacillin/Tazobactam Sod 4.5 GM in NS 100 ML IV SCH (16:45)
--- NOTE | 2024-10-11 16:54 | NUR ---
PT IS BEING TRANSFERED TO ROOM 331. REPORT GIVEN TO AMANDA Cramer RN. THE PT IS A&OX4, BUT HAS A FLAT AFFECT AND CAN BE IRRITABLE. THE PT IS A POOR HISTORIAN ABOTU MEDICATIONS AND HEALTH HISTORY. HE IS SBA IN THE ROOM FRO LINE MANAGEMENT, AND MOVES HIMSELF IND IN BED. HE DEVELOPED A LOW GRADE FEVER AND WAS MEDICATED W/ 650MG TYLENOL PER EMAR. ON TELE THE PT HAS BEEN SR/ST 90'S-130'S, HR INCREASED WITH ACTIVITY. THE PT HAS BEEN HYPERTENSIVE TODAY. THIS MORNING HE WAS GIVEN A OT DOSE OF LABETALOL WHICH IMPROVED HIS BLOOD PRESSURE FOR A FEW HOURS. THIS AFTERNOON HE WAS STARTED ON NORVASC. THE PT CONTINUES TO BE NPO BESIDES SCANT ICE CHIPS AND WATER. ONE EPISODE OF NAUSEA AT THE BEGINNING OF THE SHIFT WHICH HE WAS MEDICATED WITH COMPAZINE. THE PT'S PAIN HAS BEEN CONTROLLED AT A 4/10-0/10 PAIN. NO PAIN MEDICATIONS INDICATED THUS FAR. FLUIDS WERE INCREASED TO 200ML/HR PER DR. JAQUEZ. THE PT HAS BEEN ON RA W/O ANY SOB. PT'S MOTHER HAS BEEN AT BEDSIDE AND UPDATED ON CARE. NO FURTHER NOTES FROM THIS RN. CARE HANDED OFF TO AMANDA VILLA.
[2024-10-11] MEDS ORDERED: AmLODIPine Besylate 5 MG Tab PO SCH (17:00)
[2024-10-11 17:07] LABS: Bun/Creatinine Ratio 18.2 (12.0-20.0); Calcium, Blood 8.4 mg/dL (8.5-10.1); Creatinine, Blood 1.21 mg/dL (0.60-1.20); Potassium, Blood 3.7 mmol/L (3.5-5.5)
--- NOTE | 2024-10-11 17:22 | NUR ---
PT ARRIVED TO UNIT AT 1653 TX FROM PCU. PT A/O X'S 4, COOPERATIVE W/CARE. AFEBRILE BU HTN UPN ARRIVAL, PT GIVEN APRESOLINE (SEE EMAR) AND WILL RECHECK VS ATT 1800. PT DENIES PAIN. IS REPORTING AN INCREASE IN APPETITE, PT CURRENTLY NPO W/SIPS AND ICE CHIPS.
--- NOTE | 2024-10-11 17:40 | NUR ---
PT REQUESTING HOT TEA, NOTIFIED THAT PT REPORTS NO N/V THIS SHIFT, TOLERATING SIPS OF ICE WATER AND ICE CHIPS. PER OK TO DO HOT TEA.
--- NOTE | 2024-10-11 18:41 | NUR ---
NO ACCUTE CHANGES SINCE ASSUMING CARE. PT APPEARS TO BE SLEEPING COMFORTABLY. CALL LIGHT IN REACH
--- NOTE | 2024-10-12 03:06 | NUR ---
SHIFT SUMMARY PATIENT HAS BEEN SLEEPING INTERMITTANTLY THROUGHOUT THE NIGHT. HE HAS BEEN MEDICATED X3 WITH PRN PAIN MEDICATION FOR ABDOMINAL PAIN. IV FLUID IS INFUSING WITHOUT COMPLICATIONS. PATIENT IS ORIENTED X4. HE HAS HIS CALL LIGHT WITHIN REACH AND HAS BEEN INSTRUCTED TO CALL WITH ANY REQUESTS OR NEEDS. SAFETY PRECAUTIONS ARE BEING MAINTAINED.
[2024-10-12 03:24] VITALS: BP 160/115
[2024-10-12 05:41] LABS: BASOPHILS ABSOLUTE AUTO 0.05 K/mm3 (0.00-0.23); BASOPHILS PERCENT AUTO 0 % (0-2); EOSINOPHILS ABSOLUTE AUTO 0.03 K/mm3 (0.00-0.68); EOSINOPHILS PERCENT AUTO 0 % (0-6); Hematocrit 37.7 % (37.0-53.0); Hemoglobin 13.6 g/dL (13.5-17.5); IMMATURE GRAN ABSOLUTE AUTO 0.07 K/mm3 (0.00-0.10); IMMATURE GRAN PERCENT AUTO 1 % (0-1); LYMPHOCYTES ABSOLUTE AUTO 0.94 K/mm3 (0.84-5.20); LYMPHOCYTES PERCENT AUTO 7 % (21-46); MONOCYTES ABSOLUTE AUTO 0.81 K/mm3 (0.16-1.47); MONOCYTES PERCENT AUTO 6 % (4-13); Mean Corpuscular HGB 30.5 pg (26.0-34.0); Mean Corpuscular HGB Conc 36.1 g/dL (31.5-36.5); Mean Corpuscular Volume 85 fL (80-100); Mean Platelet Volume 9.2 fL (9.1-12.4); NEUTROPHILS ABSOLUTE AUTO 11.26 K/mm3 (1.96-9.15); NEUTROPHILS PERCENT AUTO 86 % (41-73); Platelet Count 468 K/mm3 (150-400); RDW Coefficient Variation 12.5 % (11.7-14.2); RDW Standard Deviation 38.1 fL (35.1-46.3); Red Blood Cell Count 4.46 M/mm3 (4.30-5.90); White Blood Cell Count 13.16 K/mm3 (4.00-11.30)
[2024-10-12 06:00] LABS: Albumin, Blood 2.4 g/dL (3.4-5.0); Albumin/Globulin Ratio 0.6 (0.8-1.8); Bilirubin, Total 0.6 mg/dL (0.1-1.0); Bun/Creatinine Ratio 20.5 (12.0-20.0); Calcium, Blood 8.3 mg/dL (8.5-10.1); Creatinine, Blood 1.12 mg/dL (0.60-1.20); Globulin, Blood 3.7 g/dL (2.2-4.0); Total Protein, Blood 6.1 g/dL (6.4-8.2)
[2024-10-12 07:33] VITALS: BP 163/118
--- NOTE | 2024-10-12 09:51 | NUR ---
NOTE: RECEIVED REPORTS FROM NOC RN, PATIENT WAS NAUSEATED AND THREWING UP THIS AM, MEDICATED c PRN NAUSEA MEDS. PATIENT MOTHER IS REQUESTING ICE WATER AND ICE. PATIENT AND MOTHER WAS EDUCATED ON NPO ORDER, BUT IT'S OKAY TO HAVE SMALL AMT OF ICE AND SIP OF H2O. PATIENT MOTHER STATING "THE DOCTOR LAST NIGHT HE SAID THAT HE CAN HAVE WATER, ICE AND BROOTH." NOTIFIED DR. ANDREW c THIS ISSUE. RECEIVED ORDER TO SPOT CHECK BS, ICE CHIPS AND SIPS LONG LUNA. ACCU CHECK WAS DONE c BLOOD SUGAR OF 412. NOTIFIED DR. ANDREW, RECEIVED ORDER TO GIVE 10 UNITS OF SHORT ACTING HUMALOG SC NOW AND REPEAT BLOOD SUGAR IN 4 HRS.
[2024-10-12] MEDS ORDERED: Insulin Human Lispro 100 Units/ML 3ML Syringe SC ONE (09:55)
[2024-10-12] MEDS ORDERED: Insulin Regular 100 UNIT/ML 10ML Vial SC SCH ×2 (12:00→16:30)
[2024-10-12 13:08] VITALS: BP 129/86
[2024-10-12] MEDS ORDERED: Methocarbamol 500 MG Tab PO PRN (14:45)
[2024-10-12 15:09] LABS: Bun/Creatinine Ratio 18.9 (12.0-20.0); Creatinine, Blood 1.11 mg/dL (0.60-1.20); Potassium, Blood 3.9 mmol/L (3.5-5.5)
--- NOTE | 2024-10-12 15:53 | NUR ---
SHIFT/AMA NOTE: PATIENT A/OX4, FLAT AFFECT AND WITHDRAWN. PATIENT DENIES CP/PRESSURE, SOB, N/V AND DIZZINESS. PATIENT ON TELE, ST HR LOW 100'S TO 115'S BPM. PATIENT REPORTS CHRONIC BACK PAIN, MEDICATED FOR PAIN X3 PER EMAR c MOD EFFECT. PATIENT REPORTS, "THE BED IS NOT REALLY COMFORTABLE." ENCOURAGE PATIENT TO AMBULATES IN HALLWAY OR GET OOB AND SIT UP IN CHAIR, BUT DECLINED. PATIENT CONTINUES VERBALIZING WANTING TO LEAVE AMA SINCE BEGINNING OF SHIFT. PATIENT EDUCATED THE RISK/BENIFITS OF LEAVING AMA. PATIENT VERBALIZED UNDERSTANDING, BUT STILL WANTING TO LEAVE. PATIENT CALLED MULTIPLE RELATIVES OVER THE PHONE FOR RIDES TO GO HOME. PATIENT BS TAKEN AT 0945 412, BEFORE LUNCH 347. PATIENT RECEIVED INSULIN COVERAGE PER ORDER. PATIENT ON CL, TOLERATING WELL. PATIENT BS WAS RECHECKED AT [phone]. NOTIFIED DR. LORRIE thomas THIS RESULT. AT AROUND 1500-PATIENT CALLED, STATED "MY RIDES WILL BE HERE IN ABOUT 20-30 MINS TO PICK ME UP AND I'M GOING HOME." NOTIFIED CLIENT DIRECTORTITI AND DR. LORRIE thomas THIS CONCERNED. PER DR. ANDREW, PATIENT IS NOT MEDICALLY STABLE TO BE DISCHARGE. THIS RN INFORMED PATIENT AND EDUCATED THE RISK/BENIFITS OF STAYING AND LEAVING AMA. PATIENT VERBALIZED UNDERSTANDING, STATED "I UNDERSTAND, BUT I'M STILL LEAVING, MY DAD WILL BE HERE TO PICK ME UP SOON." PATIENT SIGNED AMA FORMED. PATIENT LEFT THE ROOM AT 1536.
[2024-10-12] MEDS ORDERED: Piperacillin/Tazobactam Sod 4.5 GM in NS 100 ML IV SCH (16:11)
== END 2024-10-12 15:37 | disposition left against medical advice (07) | DRG 439 ==
LOC: ER 22:53 → MEDS 10-11 01:05 → PCU 10-11 01:05 → MEDS 10-11 16:50
PROVIDERS: Emergency Medicine; Family Medicine; Internal Medicine; Student in an Organized Health Care Education/Training Program; ADMIT Internal Medicine
DX: K85.90 Acute pancreatitis without necrosis or infection, unspecified (principal); E87.1 Hypo-osmolality and hyponatremia; N17.9 Acute kidney failure, unspecified; R65.10 Systemic inflammatory response syndrome (SIRS) of non-infectious origin without acute organ dysfunction; I10 Essential (primary) hypertension; E87.6 Hypokalemia; E86.0 Dehydration; E10.65 Type 1 diabetes mellitus with hyperglycemia; K80.20 Calculus of gallbladder without cholecystitis without obstruction; F32.A Depression, unspecified; F17.210 Nicotine dependence, cigarettes, uncomplicated; K21.9 Gastro-esophageal reflux disease without esophagitis; Z53.29 Procedure and treatment not carried out because of patient's decision for other reasons; Z79.4 Long term (current) use of insulin; Z86.74 Personal history of sudden cardiac arrest; Z86.14 Personal history of Methicillin resistant Staphylococcus aureus infection
CPT/HCPCS: 36415; 74176; 76705; 80048; 80053; 80061; 82010; 82803; 82947; 83690; 83735; 83880; 85025; 87428-QW; 93005; 93010; 96361; 96374; 96375; A9270; J0360; J0780; J1630; J1650; J1815; J2405; J2543; J2765; J3010; J3480; J7030; J7120

== ENCOUNTER 2024-10-15 14:23 | Emergency (ER) | payer OTHER ==
[~2024-10-15] VITALS: Ht 172.7 cm; Wt 67.1 kg
[~2024-10-15 14:23] MED LIST changes: +HYDHCL25 PO
[2024-10-15 15:31] LABS: BASOPHILS ABSOLUTE AUTO 0.03 K/mm3 (0.00-0.23); BASOPHILS PERCENT AUTO 1 % (0-2); EOSINOPHILS ABSOLUTE AUTO 0.19 K/mm3 (0.00-0.68); EOSINOPHILS PERCENT AUTO 4 % (0-6); Hematocrit 31.2 % (37.0-53.0); Hemoglobin 11.4 g/dL (13.5-17.5); IMMATURE GRAN ABSOLUTE AUTO 0.03 K/mm3 (0.00-0.10); IMMATURE GRAN PERCENT AUTO 1 % (0-1); LYMPHOCYTES ABSOLUTE AUTO 0.87 K/mm3 (0.84-5.20); LYMPHOCYTES PERCENT AUTO 19 % (21-46); MONOCYTES ABSOLUTE AUTO 0.32 K/mm3 (0.16-1.47); MONOCYTES PERCENT AUTO 7 % (4-13); Mean Corpuscular HGB 30.6 pg (26.0-34.0); Mean Corpuscular HGB Conc 36.5 g/dL (31.5-36.5); Mean Corpuscular Volume 84 fL (80-100); Mean Platelet Volume 9.2 fL (9.1-12.4); NEUTROPHILS ABSOLUTE AUTO 3.06 K/mm3 (1.96-9.15); NEUTROPHILS PERCENT AUTO 68 % (41-73); Platelet Count 319 K/mm3 (150-400); RDW Standard Deviation 36.6 fL (35.1-46.3); Red Blood Cell Count 3.72 M/mm3 (4.30-5.90)
[2024-10-15 16:06] LABS: Albumin, Blood 2.3 g/dL (3.4-5.0); Albumin/Globulin Ratio 0.7 (0.8-1.8); Bilirubin, Total 0.2 mg/dL (0.1-1.0); Bun/Creatinine Ratio 7.5 (12.0-20.0); Calcium, Blood 8.3 mg/dL (8.5-10.1); Creatinine, Blood 1.07 mg/dL (0.60-1.20); Globulin, Blood 3.4 g/dL (2.2-4.0); Magnesium, Blood 2.1 mg/dL (1.6-2.4); Potassium, Blood 3.6 mmol/L (3.5-5.5); Total Protein, Blood 5.7 g/dL (6.4-8.2)
[2024-10-15 17:50] VITALS: BP 150/100
[2024-10-15] MEDS ORDERED: Tetracaine HCl/Pf 0.5% Opth Soln 4 ml BOTHEYES ONE (18:05)
== END 2024-10-15 18:52 | disposition home or self-care (01) ==
LOC: ER 14:23
PROVIDERS: Student in an Organized Health Care Education/Training Program
DX: H53.8 Other visual disturbances (principal); I10 Essential (primary) hypertension; E10.9 Type 1 diabetes mellitus without complications; K21.9 Gastro-esophageal reflux disease without esophagitis; Z79.4 Long term (current) use of insulin; Z79.899 Other long term (current) drug therapy
CPT/HCPCS: 70450; 70496; 70498; 80053; 82947; 83735; 84484; 85025; 93005; 93010; 99284-25; Q9967

== ENCOUNTER 2024-11-22 02:46 | Inpatient (IN) | payer OTHER ==
[2024-11-22] VITALS (15 sets, daily range): BP systolic 110–181; BP diastolic 75–119
[~2024-11-22] VITALS: Ht 175.3 cm; Wt 56.5 kg
[2024-11-22] MEDS ORDERED: NS 1,000 ML IV ONE (03:14)
[2024-11-22] MEDS ORDERED: Ondansetron HCl 2 MG / ML 2ML Vial ONE (03:25)
[2024-11-22] MEDS ORDERED: NS 1,000 ML IV SCH ×2 (03:40→22:55)
[2024-11-22 03:44] LABS: BASOPHILS ABSOLUTE AUTO 0.03 K/mm3 (0.00-0.23); BASOPHILS PERCENT AUTO 0 % (0-2); EOSINOPHILS ABSOLUTE AUTO 0.01 K/mm3 (0.00-0.68); EOSINOPHILS PERCENT AUTO 0 % (0-6); Hematocrit 39.3 % (37.0-53.0); Hemoglobin 14.3 g/dL (13.5-17.5); IMMATURE GRAN PERCENT AUTO 1 % (0-1); LYMPHOCYTES PERCENT AUTO 5 % (21-46); MONOCYTES ABSOLUTE AUTO 0.26 K/mm3 (0.16-1.47); MONOCYTES PERCENT AUTO 1 % (4-13); Mean Corpuscular HGB 29.9 pg (26.0-34.0); Mean Corpuscular HGB Conc 36.4 g/dL (31.5-36.5); Mean Corpuscular Volume 82 fL (80-100); Mean Platelet Volume 9.7 fL (9.1-12.4); NEUTROPHILS ABSOLUTE AUTO 18.82 K/mm3 (1.96-9.15); NEUTROPHILS PERCENT AUTO 93 % (41-73); Platelet Count 557 K/mm3 (150-400); RDW Coefficient Variation 11.7 % (11.7-14.2); RDW Standard Deviation 35.5 fL (35.1-46.3); Red Blood Cell Count 4.78 M/mm3 (4.30-5.90); White Blood Cell Count 20.22 K/mm3 (4.00-11.30)
[2024-11-22] MEDS ORDERED: Ondansetron HCl 2 MG / ML 2ML Vial IV ONE (03:45)
[2024-11-22 04:03] LABS: Magnesium, Blood 2.1 mg/dL (1.6-2.4); Thyroid Stimulating Hormone 4.22 uIU/mL (0.360-4.800)
[2024-11-22 04:03] LABS: Calcium, Ionized (POC) 1.11 mmol/L (1.10-1.46); Chloride (POC) 94 mmol/L (98-108); Creatinine (POC) 1.5 mg/dL (0.8-1.3); Glucose (ISTAT POC) >700 mg/dL (70-99); Hemoglobin (POC) 13.6 g/dL (13.5-17.5); Potassium (POC) 3.6 mmol/L (3.5-5.5); Sodium (POC) 127 mmol/L (135-148); Total CO2 (POC) 12 mmol/L (21-32)
[2024-11-22] MEDS ORDERED: Prochlorperazine Edisylate 10 mg Vial IV ONE (04:05)
[2024-11-22] MEDS ORDERED: DiphenhydrAMINE HCl 50 MG/ML 1ML Vial IV ONE (04:05)
[2024-11-22 04:07] LABS: Albumin, Blood 3.4 g/dL (3.4-5.0); Albumin/Globulin Ratio 0.8 (0.8-1.8); Bilirubin, Total 0.8 mg/dL (0.1-1.0); Bun/Creatinine Ratio 23.1 (12.0-20.0); Calcium, Blood 9.6 mg/dL (8.5-10.1); Creatinine, Blood 1.21 mg/dL (0.60-1.20); Globulin, Blood 4.3 g/dL (2.2-4.0); Phosphorus, Blood 7.1 mg/dL (2.5-4.9); Potassium, Blood 3.6 mmol/L (3.5-5.5); Total Protein, Blood 7.7 g/dL (6.4-8.2)
[2024-11-22 04:07] LABS: Source, Urine Clean Catch
[2024-11-22 04:10] LABS: Base Excess Venous -20.3 mmol/L; Bicarbonate Venous 11.5 mmol/L (24.0-30.0); PCO2 Venous 19.2 mmHg (38-42); pH Blood Venous 7.21 (7.34-7.37)
[2024-11-22] MEDS ORDERED: NS KCl 20mEq 1,000 ML IV SCH (04:15)
[2024-11-22] MEDS ORDERED: Insulin Human Regular 100 UNIT in NS 100 ML IV SCH (04:15)
[2024-11-22] MEDS ORDERED: Insulin Regular 100 Unit/ML 1ML Dose IV ONE (04:15)
[2024-11-22 04:16] LABS: Appearance, Urine Clear (Clear); Bilirubin, Urine Neg (Neg); Blood, Urine 2+ (Neg); Glucose Qualitative, Urine 4+ (Neg); Ketones, Urine 4+ (Neg); Leukocyte Esterase, Urine Neg (Neg); Nitrite, Urine Neg (Neg); Protein, Urine 4+ (Neg); Specific Gravity, Urine 1.015 (1.003-1.022); Urobilinogen, Urine NORM (Normal)
[2024-11-22 04:28] LABS: Color, Urine Pale Yellow (P-Yellow)
[2024-11-22 04:29] LABS: Bacteria Few /hpf; Hyaline Casts 0-2 /lpf (0-2); Red Blood Cells, Urine 0-2 /hpf (0-2); Squamous Epithelial Cells Few /hpf (Few); White Blood Cells, Urine 0-2 /hpf (0-5)
[2024-11-22 04:57] LABS: Beta-hydroxybutyrate 86.9 mg/dL (0.2-2.8)
[2024-11-22] MEDS ORDERED: LORazepam 2 MG/ML 1ML Injection IV ONE ×2 (06:00→22:55)
--- NOTE | 2024-11-22 07:11 | NUR ---
ARRIVAL TO UNIT 0623 ARRIVED TO UNIT ACCOMPANIED BY MOTHER, DAVID, WHO WAS ASKED TO WAIT IN THE ICU LOUNGE BUT WAS THEN FOUND WANDERING THE BENOIT WHEN I WENT TO GET HER. PT WALKED FROM STRETCHER TO BED INDEPENDENTLY WITH RN ASSISTING WITH CORDS/LINES. PT AOX4, COOPERATIVE. ST 130S, 100% RA LSCTA, BP ELEVATED, NO C/O PAIN. 2 WARM BLANKETS APPLIED REQUESTED AND WENT TO GET HIS MOM. AFTER INTRODUCTIONS HE ASKED FOR SOME HOT TEA BECAUSE HE WAS STILL COLD AND THAT "WOULD BE THE ONLY THING TO HELP". I REMINDED HIM THAT HE WAS STILL NPO WHICH MEANT HE COULDN'T HAVE ANYTHING BY MOUTH MEANING NO FOOD OR DRINKS. PT "WELL THEY WERE LETTING ME DRINK IN THE ER", ME "YES, AND YOU WOULD VOMIT RIGHT AFTER DRINKING EVERYTHING THEY GAVE YOU EACH TIME. WE NEED TO GET YOUR N/V UNDER CONTROL." THEN MOM SAID "HE'LL JUST KEEP BADGERING YOU UNTIL YOU GIVE HIM WHAT HE WANTS AND IF YOU DON'T HE'LL LEAVE AND HE NEEDS TO STAY BECAUSE HE'S SICK" ME TO BOTH PARTIES "I UNDERSTAND THAT HOWEVER, I AM NOT GOING TO GIVE YOU ANYTHING RIGHT NOW. THE DOCTORS WILL BE ROUNDING SOON AND YOU CAN ASK THEM ABOUT EATING/DRINKING." MOM TO SON "DON'T WORRY, SHE'LL BE GONE SOON AND I BET THE NEXT NURSE WILL GIVE YOU SOMETHING" TURNS TO ME "CAN I GET A CHAIR IN HERE?" ME "YES, I JUST NEED TO ENTER HIS ADMIT IN REALLY QUICKLY AND THEN I WILL TRACK ONE DOWN FOR YOU." PT C/O BEING COLD AGAIN AND MOM SAYS "THERE SHOULD BE BLANKETS IN HERE, RIGHT?" AND BEGINS TO TRY AND OPEN THE CABINETS ONLY TO BE DISAPPOINTED TO FIND THAT THEY WERE LOCKED. LOOKS AT ME, "YOU KNOW HE'S JUST GOING TO KEEP DEMANDING TO DRINK" TO WHICH I NODDED. I DID A POC GLUCOSE WHICH WAS "HIGH" AND LET HIM KNOW LAB WOULD BE INTO DRAW HIM SOON, MOM ASKED WHY AND I EXPLAINED THAT IF A GLUCOSE LEVEL IS TOO HIGH FOR THE METER, IT HAS TO BE RUN BY THE LAB TO GET AN ACCURATE LEVEL, THEN CLOSED THE CURTAIN AND LEFT THE ROOM TO START HIS ADMIT. APPROX 3 MIN AFTER, MOM PULLS BACK THE CURTAIN AND SAYS LOUDLY INTO THE UNIT "CAN I GET A CHAIR IN HERE? SHE ISN'T GETTING ME ONE (GLARING RIGHT AT ME)" I REMINDED HER THAT I WAS GOING TO GET ONE AFTER MY QUICK ADMIT WAS DONE THEN CONTINUED WITH MY CHARTING. ONE OF THE OTHER NURSES THAT WAS AVAILABLE WENT TO GET HER ONE WHICH SHE THEN LOUDLY DRAGGED AROUND THE ROOM FOR ABOUT A MINUTE BEFORE FINDING A GOOD SPOT FOR HERSELF. LAB CAME TO DO HIS DRAW AT 0645.
[2024-11-22 07:27] LABS: Glucose, Blood 491 mg/dL (70-99)
[2024-11-22 07:33] LABS: Bun/Creatinine Ratio 22.2 (12.0-20.0); Calcium, Blood 8.5 mg/dL (8.5-10.1); Creatinine, Blood 1.35 mg/dL (0.60-1.20); Potassium, Blood 3.6 mmol/L (3.5-5.5)
--- NOTE | 2024-11-22 08:00 | NUR ---
Jasper of care: Resting comfortabling in bed. Oriented & cooperative. In ST in 110-130s. Blood pressures stable. On room air. No complaints of nausea or vomiting at this time, but keeping him strictly NPO. Insulin gtt & NS with 20KCL infusing. PIV x2 in place. Will continue to monitor.
[2024-11-22] MEDS ORDERED: Enoxaparin 40 MG/0.4 ML SYR SC SCH (09:00)
[2024-11-22] MEDS ORDERED: D5W-1/2NS 1,000 ML IV SCH (09:45)
[2024-11-22 11:23] LABS: Bun/Creatinine Ratio 23.5 (12.0-20.0); Calcium, Blood 8.4 mg/dL (8.5-10.1); Creatinine, Blood 1.15 mg/dL (0.60-1.20); Potassium, Blood 3.5 mmol/L (3.5-5.5)
[2024-11-22 15:15] LABS: Bun/Creatinine Ratio 21.1 (12.0-20.0); Calcium, Blood 8.6 mg/dL (8.5-10.1); Creatinine, Blood 1.09 mg/dL (0.60-1.20); Potassium, Blood 3.7 mmol/L (3.5-5.5)
[2024-11-22] MEDS ORDERED: OxyCODONE HCL 5 MG TAB PO PRN (15:25)
[2024-11-22] MEDS ORDERED: Labetalol HCL 5 MG/ML 20MLVIAL IV PRN (16:10)
[2024-11-22] MEDS ORDERED: Lisinopril 20 MG Tab PO ONE (18:10)
[2024-11-22] MEDS ORDERED: HydrALAZINE HCl 20 MG / ML 1ML Vial IV PRN (18:10)
--- NOTE | 2024-11-22 18:10 | NUR ---
Shift summary: Rested quietly in bed most of the day. Ambulating to commode independently. Tmax 99.7. Is complaining of some back pain for which prn oxycodone was ordered. Heart rate has been regular, anywhere from 140s to 100s. Blood pressures have been elevated - discussed with Dr. Aguilar a few times - see emar for medication administration. Remains on room air. Voiding. Poor appetite, no nausea or vomiting today. PIV x1 in place. D51/2NS at 150 cc/hr & insulin gtt per protocol. Serial labs ordered. Mom & patient updated on plan of care. Will continue to monitor.
--- NOTE | 2024-11-22 20:00 | NUR ---
ASSUMED CARE OF PT AT 1900 PT RESTING ON BED, SLEEPING BUT ROUSES EASILY TO VERBAL STIMULI. PT AOX4 AND COOPERATIVE W/ CARE. STS NAUSEA AND PAIN IS CONTROLLED AT THIS TIME. DENIES CURRENT NEEDS. CALL LIGHT W/ IN REACH. PT ON RA W/ CLEAR LUNG SOUNDS. O2 SATS>95%. SINUS TACH IN THE 100S VIA CONTINUOUS MONITOR. PT HYPERTENSIVE W/ SYSTOLICS IN THE 150S- PT GIVEN ORAL MEDS BY DAYSHIFT RN. WILL CONTINUE TO MONITOR. INSULIN DRIP RUNNING AT 1.8 UNITS/HR. D5 1/2NS AT 150ML/HR. CALL LIGHT W/ IN REACH. PLAN OF CARE ONGOING.
[2024-11-22 20:30] LABS: Bun/Creatinine Ratio 19.6 (12.0-20.0); Calcium, Blood 8.6 mg/dL (8.5-10.1); Creatinine, Blood 1.02 mg/dL (0.60-1.20); Potassium, Blood 3.3 mmol/L (3.5-5.5)
--- NOTE | 2024-11-22 21:12 | NUR ---
PROVIDER UPDATED CONTACTED DR. CACERES TO UPDATE ON MOST RECENT BMP- ORDERS TO ADVANCE DIET TO CONSITENT CARB, AND CALL BACK IN ONE HOUR TO REASSESS INSULIN DRIP PENDING TOLERANCE OF PO INTAKE.
--- NOTE | 2024-11-22 21:59 | NUR ---
PT TOLERATED PO FLUIDS/FOODS. DR. CACERES UPDATED. ORDERS TO HOLD INSULIN DRIP AT THIS TIME- STS HE WILL CALL BACK FOR FURTHER ORDERS
[2024-11-22] MEDS ORDERED: [UNRECOGNIZED DRUG - OTHER] IV SCH (22:00)
[2024-11-22] MEDS ORDERED: Potassium Chl 20MEQ/Water100ML 100 ML IV SCH (22:15)
[2024-11-22] MEDS ORDERED: Ondansetron HCl 2 MG / ML 2ML Vial IV PRN (22:55)
[2024-11-23] VITALS (14 sets, daily range): BP systolic 136–171; BP diastolic 97–126
[2024-11-23 00:41] LABS: Bun/Creatinine Ratio 19.7 (12.0-20.0); Calcium, Blood 8.4 mg/dL (8.5-10.1); Creatinine, Blood 0.91 mg/dL (0.60-1.20)
[2024-11-23 04:47] LABS: Bun/Creatinine Ratio 17.7 (12.0-20.0); Calcium, Blood 8.6 mg/dL (8.5-10.1); Creatinine, Blood 0.96 mg/dL (0.60-1.20); Potassium, Blood 4.3 mmol/L (3.5-5.5)
[2024-11-23 04:56] LABS: BASOPHILS ABSOLUTE AUTO 0.03 K/mm3 (0.00-0.23); BASOPHILS PERCENT AUTO 0 % (0-2); EOSINOPHILS ABSOLUTE AUTO 0.02 K/mm3 (0.00-0.68); EOSINOPHILS PERCENT AUTO 0 % (0-6); Hemoglobin 12.3 g/dL (13.5-17.5); IMMATURE GRAN ABSOLUTE AUTO 0.07 K/mm3 (0.00-0.10); IMMATURE GRAN PERCENT AUTO 0 % (0-1); LYMPHOCYTES ABSOLUTE AUTO 0.82 K/mm3 (0.84-5.20); LYMPHOCYTES PERCENT AUTO 5 % (21-46); MONOCYTES ABSOLUTE AUTO 0.99 K/mm3 (0.16-1.47); MONOCYTES PERCENT AUTO 6 % (4-13); Mean Corpuscular HGB 30.4 pg (26.0-34.0); Mean Corpuscular HGB Conc 37.3 g/dL (31.5-36.5); Mean Corpuscular Volume 82 fL (80-100); Mean Platelet Volume 9.3 fL (9.1-12.4); NEUTROPHILS ABSOLUTE AUTO 14.63 K/mm3 (1.96-9.15); NEUTROPHILS PERCENT AUTO 88 % (41-73); Platelet Count 399 K/mm3 (150-400); RDW Standard Deviation 35.6 fL (35.1-46.3); Red Blood Cell Count 4.05 M/mm3 (4.30-5.90); White Blood Cell Count 16.56 K/mm3 (4.00-11.30)
[2024-11-23] MEDS ORDERED: LORazepam 2 MG/ML 1ML Injection IV PRN (05:05)
--- NOTE | 2024-11-23 07:15 | NUR ---
Shift summary No acute events overnight. Pt aox4, cooperative w/ care. PT had brief episodes anxiety related to difficulty sleeping. Pt medicated per emar w/ prn ativan w/ good effect. PT sinus tach rate of 110s during rest and increases to 140s w/ ambulation. Pt systolics 140-160s. Pt afebrile during shift. Pt continent of bladder and was up to rr w/ line assist. No bm this shift. Insulin infusing at 2.4units/hr and d5 1/2ns @75ml/hr. Call light w/ in reach. Plan of care ongoing
--- NOTE | 2024-11-23 07:47 | NUR ---
AM NOTE... ASSUMED CARE OF PT AT 0700, PT IS A&Ox4 AND SBA IN THE ROOM FOR CORD CONTROL. PT IS IN SINUS TACH 100'S-120'S. BP IS HYPERTENSIVE WITH SBPs 150'S-160'S PRN ORDERS AVAILABLE FOR SBPs >170. L/S CLEAR T/O ON RA. NO SWELLING OR EDMA NOTED. INSULIN GTT RUNNING AT 2.4U/HR.
[2024-11-23 08:40] LABS: Bun/Creatinine Ratio 14.4 (12.0-20.0); Calcium, Blood 8.7 mg/dL (8.5-10.1); Creatinine, Blood 1.04 mg/dL (0.60-1.20)
[2024-11-23] MEDS ORDERED: FLUoxetine HCL 20 MG CAP PO SCH (09:00)
[2024-11-23] MEDS ORDERED: Lisinopril 20 MG Tab PO SCH (09:00)
[2024-11-23] MEDS ORDERED: HyDROXyzine HCl 25 MG Tab PO PRN (09:10)
[2024-11-23] MEDS ORDERED: Insulin Glargine-Yfgn 100 Unit/mL 3 ML SYR SC SCH (09:11)
[2024-11-23 12:34] LABS: Bun/Creatinine Ratio 15.5 (12.0-20.0); Calcium, Blood 8.4 mg/dL (8.5-10.1); Creatinine, Blood 0.9 mg/dL (0.60-1.20); Potassium, Blood 3.6 mmol/L (3.5-5.5)
[2024-11-23] MEDS ORDERED: Acetaminophen 325 MG TABLET PO PRN (14:10)
[2024-11-23] MEDS ORDERED: Omeprazole 20 MG CapCR PO SCH (16:30)
--- NOTE | 2024-11-23 18:44 | NUR ---
SHIFT SUMMARY... PT HAS BEEN OFF THE INSULIN DRIP SINCE 1040. PT'S CBG AT 1700 WAS 73 PT STATED HE FELT SYMPTOMATIC ANY TIME HE IS UNDER 100. PT STATED THAT HE FELT DIAPHORETIC AND HIS VISION WAS BLURRY. PT WAS GIVEN HIS DINNER TRAY HE ATE APROX 15% AND DRANK AN APPLE JUICE CBG APROX 20MINS AFTER EATING/DRINKING WAS 123 PT STATED HE FELT BETTER. PT WAS MEDICATED ONCE THIS SHIFT PER EMAR FOR HYPERTENSION WITH GOOD RESULTS. PT HAS BEEN UP TO THE TOILET TO VOID TWICE THIS SHIFT. PT'S MOM AT THE BEDSIDE SEVERAL TIMES THIS SHIFT SHE WAS UPDATED ON THE PT'S CONDITION AND PLAN OF CARE.
[2024-11-23] MEDS ORDERED: Insulin Human Lispro 100 Units/ML 3ML Syringe SC SCH (21:00)
[2024-11-23] MEDS ORDERED: Melatonin 5 MG Tablet PO SCH (22:40)
[2024-11-24] MEDS ORDERED: MethylPREDNISolone Sod Succ 125 MG Vial IV ONE (00:40)
--- NOTE | 2024-11-24 00:40 | NUR ---
PT UPDATE PT C/O SWELLING TO EYES, EYELIDS APPEAR SWOLLEN AND REDDENED. NO SWELLING TO TONGUE/LIPS- DENIES ANY SOB OR TINGLING. DR. CACERES TO ROOM FOR PT EVAL. VERBAL ORDERS FOR 125MG SOLUMEDROL IV. WILL CONTIINUE TO MONITOR.
[2024-11-24 00:58] VITALS: BP 153/109
[2024-11-24 04:12] LABS: BASOPHILS ABSOLUTE AUTO 0.02 K/mm3 (0.00-0.23); BASOPHILS PERCENT AUTO 0 % (0-2); EOSINOPHILS ABSOLUTE AUTO 0.02 K/mm3 (0.00-0.68); EOSINOPHILS PERCENT AUTO 0 % (0-6); Hematocrit 37.3 % (37.0-53.0); Hemoglobin 13.5 g/dL (13.5-17.5); IMMATURE GRAN ABSOLUTE AUTO 0.03 K/mm3 (0.00-0.10); IMMATURE GRAN PERCENT AUTO 0 % (0-1); LYMPHOCYTES ABSOLUTE AUTO 0.63 K/mm3 (0.84-5.20); LYMPHOCYTES PERCENT AUTO 8 % (21-46); MONOCYTES ABSOLUTE AUTO 0.19 K/mm3 (0.16-1.47); MONOCYTES PERCENT AUTO 2 % (4-13); Mean Corpuscular HGB 30.5 pg (26.0-34.0); Mean Corpuscular HGB Conc 36.2 g/dL (31.5-36.5); Mean Corpuscular Volume 84 fL (80-100); Mean Platelet Volume 9.1 fL (9.1-12.4); NEUTROPHILS PERCENT AUTO 89 % (41-73); Platelet Count 342 K/mm3 (150-400); RDW Standard Deviation 36.7 fL (35.1-46.3); Red Blood Cell Count 4.42 M/mm3 (4.30-5.90); White Blood Cell Count 7.79 K/mm3 (4.00-11.30)
[2024-11-24 04:33] LABS: Calcium, Blood 8.8 mg/dL (8.5-10.1); Creatinine, Blood 0.92 mg/dL (0.60-1.20); Potassium, Blood 3.7 mmol/L (3.5-5.5)
--- NOTE | 2024-11-24 05:48 | NUR ---
NOC SHIFT SUMMARY PT ALERT ORIENTED AND INDEPENDENT IN ROOM W/ RESTROOM. PT HAD MULTIPLE EPISODES OF ANXIETY AND REQUESTING MEDICATION FREQUENTLY. PT GIVEN PRN ATARAX AND HAS SWELLING TO EYELIDS ONE HOUR AFTER ADMINISTRATION. UNSURE IF MEDICATION CAUSED REACTION. DR. CACERES EVALUATES PT AT BEDSIDE AND GIVEN STEROIDS. ICE PACK APPLIED TO EYES AND SWELLING DECREASED SOMEWHAT. EYELIDS REMAIN REDDENED. PT DENIES CHANGES TO VISION OR ANY LIP/THROAT/TONGUE TINGLING OR SENSATION OF SWELLING. PT LUNGS CLEAR AND MAINTAINING GOOD O2 SATS ON ROOM AIR. HR 90-100S, BP REMAINS MILDLY HYPERTENSIVE IN 140S SYSTOLIC. PT USING CALL LIGHT APPROPRIATELY. PLAN OF CARE ONGOING
[2024-11-24] MEDS ORDERED: Buspirone HCl15 MG PO (07:42)
[2024-11-24 07:51] VITALS: BP 138/100
--- NOTE | 2024-11-24 08:00 | NUR ---
INITIAL ASSESSMENT: Patient is alert and oriented x4, anxious and at times tearful at times. He denies pain at this time. HRR, SR in the 90s, SBP in the 140s. LS CTA, Biox WNL on RA. BT+. PPP. His blood sugar is 233 this AM. He is anxious to be discharged this morning. AM meds given with a sip of water. He denies other needs at this time. Call light in reach.
--- NOTE | 2024-11-24 10:48 | NUR ---
DISCHARGE: Patient verbalized understanding of DC instructions, no new scripts. He is discharged via WC.
== END 2024-11-24 11:36 | disposition home or self-care (01) | DRG 638 ==
LOC: ER 02:46 → ICUE 02:47 → ERHOLD 02:47 → ICUE 06:21
PROVIDERS: Emergency Medicine; Internal Medicine; ADMIT Internal Medicine
DX: E10.10 Type 1 diabetes mellitus with ketoacidosis without coma (principal); E87.1 Hypo-osmolality and hyponatremia; R65.10 Systemic inflammatory response syndrome (SIRS) of non-infectious origin without acute organ dysfunction; N17.9 Acute kidney failure, unspecified; F32.A Depression, unspecified; F17.210 Nicotine dependence, cigarettes, uncomplicated; E86.0 Dehydration; F12.10 Cannabis abuse, uncomplicated; I12.9 Hypertensive chronic kidney disease with stage 1 through stage 4 chronic kidney disease, or unspecified chronic kidney disease; N18.9 Chronic kidney disease, unspecified; K21.9 Gastro-esophageal reflux disease without esophagitis; Z79.85 Long-term (current) use of injectable non-insulin antidiabetic drugs; Z79.899 Other long term (current) drug therapy; Z86.74 Personal history of sudden cardiac arrest; Z79.4 Long term (current) use of insulin; Z86.14 Personal history of Methicillin resistant Staphylococcus aureus infection
CPT/HCPCS: 36415; 71045; 80047; 80048; 80053; 81001; 82010; 82803; 82947; 83605; 83735; 84100; 84443; 84484; 85014; 85025; 93005; 93010; 96361; 96374; 96375; 99285-25; A9270; G0378; J0780; J1200; J1815; J2060; J2405; J2919; J3480; J7030; J7042

== ENCOUNTER 2024-12-10 21:40 | Emergency (ER) | payer OTHER ==
[~2024-12-10] VITALS: Ht 172.7 cm; Wt 59.0 kg
[~2024-12-10 21:40] MED LIST changes: +Buspirone HCl15 MG PO
[2024-12-10] MEDS ORDERED: Dextrose 50% 50 ML Syringe ONE (22:54)
[2024-12-10] MEDS ORDERED: NS 1,000 ML IV SCH (22:55)
[2024-12-10] MEDS ORDERED: Ondansetron HCl 2 MG / ML 2ML Vial IV ONE (22:55)
[2024-12-10] MEDS ORDERED: Dextrose 10% 500 ML IV SCH (23:00)
[2024-12-10 23:24] LABS: U Amphetamine Screen Not Detected; U Barbituate Screen Not Detected; U Benzodiazapine Screen Not Detected; U Buprenorphine Screen Not Detected; U Cannabinoids Screen DETECTED; U Cocaine Screen Not Detected; U Methadone Screen Not Detected; U Methamphetamine Screen Not Detected; U Opiates Screen Not Detected; U Oxycodone Screen Not Detected; U Phencyclidine Screen Not Detected
[2024-12-10 23:26] LABS: BASOPHILS PERCENT AUTO 1 % (0-2); EOSINOPHILS ABSOLUTE AUTO 0.14 K/mm3 (0.00-0.68); EOSINOPHILS PERCENT AUTO 1 % (0-6); Hematocrit 36.3 % (37.0-53.0); Hemoglobin 13.3 g/dL (13.5-17.5); IMMATURE GRAN ABSOLUTE AUTO 0.08 K/mm3 (0.00-0.10); IMMATURE GRAN PERCENT AUTO 0 % (0-1); LYMPHOCYTES PERCENT AUTO 12 % (21-46); MONOCYTES ABSOLUTE AUTO 1.15 K/mm3 (0.16-1.47); MONOCYTES PERCENT AUTO 7 % (4-13); Mean Corpuscular HGB 30.3 pg (26.0-34.0); Mean Corpuscular HGB Conc 36.6 g/dL (31.5-36.5); Mean Corpuscular Volume 83 fL (80-100); Mean Platelet Volume 9.2 fL (9.1-12.4); NEUTROPHILS ABSOLUTE AUTO 14.12 K/mm3 (1.96-9.15); NEUTROPHILS PERCENT AUTO 79 % (41-73); Platelet Count 439 K/mm3 (150-400); RDW Coefficient Variation 12.5 % (11.7-14.2); RDW Standard Deviation 37.7 fL (35.1-46.3); Red Blood Cell Count 4.39 M/mm3 (4.30-5.90); White Blood Cell Count 17.79 K/mm3 (4.00-11.30)
[2024-12-10 23:45] LABS: Ethanol (Alcohol), Blood, Med <3 mg/dL; Magnesium, Blood 2.1 mg/dL (1.6-2.4)
[2024-12-10 23:50] LABS: Alanine Aminotransfer (ALT/SGP 41 U/L (12-78); Albumin, Blood 3.1 g/dL (3.4-5.0); Albumin/Globulin Ratio 0.8 (0.8-1.8); Alk Phos 68 U/L (50-136); Anion Gap 12 mmol/L (3-11); Aspartate Aminotrans (AST/SGOT 47 U/L (12-37); Bilirubin, Total 0.2 mg/dL (0.1-1.0); Blood Urea Nitrogen 18 mg/dL (8-24); Bun/Creatinine Ratio 15.7 (12.0-20.0); CO2, Blood 26 mmol/L (21-32); Calcium, Blood 9.5 mg/dL (8.5-10.1); Chloride, Blood 104 mmol/L (98-108); Creatinine, Blood 1.15 mg/dL (0.60-1.20); Globulin, Blood 3.9 g/dL (2.2-4.0); Glomerular Filtration Rate 88 (60-); Glucose, Blood 42 mg/dL (70-99); Potassium, Blood 3.6 mmol/L (3.5-5.5); Sodium, Blood 138 mmol/L (136-145)
[2024-12-11 01:00] VITALS: BP 156/115
[2024-12-11] MEDS ORDERED: Ondansetron Odt8 MG MM (02:53)
== END 2024-12-11 03:05 | disposition home or self-care (01) ==
LOC: ER 21:40
PROVIDERS: Emergency Medicine
DX: E10.649 Type 1 diabetes mellitus with hypoglycemia without coma (principal); I10 Essential (primary) hypertension; K21.9 Gastro-esophageal reflux disease without esophagitis; F17.200 Nicotine dependence, unspecified, uncomplicated; Z86.74 Personal history of sudden cardiac arrest; Z88.8 Allergy status to other drugs, medicaments and biological substances; Z79.4 Long term (current) use of insulin; Z79.899 Other long term (current) drug therapy
CPT/HCPCS: 80053; 80320; 82947; 83735; 85025; 96361; 96374; 99284-25; J2405; J7030

== ENCOUNTER → 2025-06-09 | Outpatient (CLI) | payer OTHER ==
[~2025-06-09] MED LIST changes: +Ondansetron Odt8 MG MM
[2025-06-09 10:48] LABS: BASOPHILS ABSOLUTE AUTO 0.04 K/mm3 (0.00-0.23); BASOPHILS PERCENT AUTO 1 % (0-2); EOSINOPHILS ABSOLUTE AUTO 0.11 K/mm3 (0.00-0.68); EOSINOPHILS PERCENT AUTO 2 % (0-6); Hematocrit 29.3 % (37.0-53.0); Hemoglobin 10.8 g/dL (13.5-17.5); IMMATURE GRAN ABSOLUTE AUTO 0.02 K/mm3 (0.00-0.10); IMMATURE GRAN PERCENT AUTO 0 % (0-1); LYMPHOCYTES ABSOLUTE AUTO 1.04 K/mm3 (0.84-5.20); LYMPHOCYTES PERCENT AUTO 18 % (21-46); MONOCYTES ABSOLUTE AUTO 0.33 K/mm3 (0.16-1.47); MONOCYTES PERCENT AUTO 6 % (4-13); Mean Corpuscular HGB Conc 36.9 g/dL (31.5-36.5); Mean Corpuscular Volume 80 fL (80-100); NEUTROPHILS ABSOLUTE AUTO 4.21 K/mm3 (1.96-9.15); NEUTROPHILS PERCENT AUTO 73 % (41-73); NRBC ABSOLUTE 0.00 K/mm3 (0.00-0.02); NRBC Auto 0.0 /100 WBC (0.0-0.2); Platelet Count 359 K/mm3 (150-400); RDW Coefficient Variation 11.9 % (11.7-14.2); RDW Standard Deviation 34.7 fL (35.1-46.3)
[2025-06-09 10:58] LABS: Alanine Aminotransfer (ALT/SGP 17.0 U/L (12-78); Albumin, Blood 2.4 g/dL (3.4-5.0); Albumin/Globulin Ratio 0.6 (0.8-1.8); Anion Gap 16.0 mmol/L (6-16); Aspartate Aminotrans (AST/SGOT 15.0 U/L (12-37); Bilirubin, Total 0.2 mg/dL (0.1-1.0); Blood Urea Nitrogen 13.0 mg/dL (8-24); CO2, Blood 24.0 mmol/L (21-32); Calcium, Blood 8.4 mg/dL (8.5-10.1); Chloride, Blood 99.0 mmol/L (98-108); Creatinine, Blood 1.82 mg/dL (0.60-1.20); Globulin, Blood 3.9 g/dL (2.2-4.0); Glucose, Blood 346.0 mg/dL (70-99); Potassium, Blood 4.1 mmol/L (3.5-5.5); Sodium, Blood 135.0 mmol/L (136-145); Total Protein, Blood 6.3 g/dL (6.4-8.2)
[2025-06-09 18:35] LABS: Ferritin, Serum 40.0 ng/mL (26-388); Total Iron Binding Capacity 241.0 ug/dL (250-450)
== END ==
LOC: LAB 10:38 → LAB SHORT 10:38
PROVIDERS: Family Medicine
DX: D50.8 Other iron deficiency anemias (principal); R11.2 Nausea with vomiting, unspecified
CPT/HCPCS: 80053; 82728; 83540; 83550; 85025; 85060

== ENCOUNTER 2025-06-26 18:19 | Emergency (ER) | payer OTHER ==
[~2025-06-26] VITALS: Ht 172.7 cm; Wt 59.0 kg
[2025-06-26] MEDS ORDERED: Ondansetron HCl 2 MG / ML 2ML Vial IV ONE ×2 (19:10→20:30)
[2025-06-26] MEDS ORDERED: NS 1,000 ML IV SCH (19:10)
[2025-06-26 19:47] LABS: BASOPHILS ABSOLUTE AUTO 0.04 K/mm3 (0.00-0.23); BASOPHILS PERCENT AUTO 1 % (0-2); EOSINOPHILS ABSOLUTE AUTO 0.04 K/mm3 (0.00-0.68); EOSINOPHILS PERCENT AUTO 1 % (0-6); Hematocrit 32.8 % (37.0-53.0); Hemoglobin 11.9 g/dL (13.5-17.5); IMMATURE GRAN ABSOLUTE AUTO 0.04 K/mm3 (0.00-0.10); IMMATURE GRAN PERCENT AUTO 1 % (0-1); LYMPHOCYTES ABSOLUTE AUTO 0.94 K/mm3 (0.84-5.20); LYMPHOCYTES PERCENT AUTO 16 % (21-46); MONOCYTES ABSOLUTE AUTO 0.47 K/mm3 (0.16-1.47); MONOCYTES PERCENT AUTO 8 % (4-13); Mean Corpuscular HGB Conc 36.3 g/dL (31.5-36.5); Mean Corpuscular Volume 83 fL (80-100); NEUTROPHILS ABSOLUTE AUTO 4.37 K/mm3 (1.96-9.15); NEUTROPHILS PERCENT AUTO 74 % (41-73); NRBC ABSOLUTE 0.00 K/mm3 (0.00-0.02); NRBC Auto 0.0 /100 WBC (0.0-0.2); Platelet Count 365 K/mm3 (150-400); RDW Coefficient Variation 11.8 % (11.7-14.2); RDW Standard Deviation 35.2 fL (35.1-46.3)
[2025-06-26 20:20] LABS: Alanine Aminotransfer (ALT/SGP 25.0 U/L (12-78); Albumin, Blood 2.8 g/dL (3.4-5.0); Albumin/Globulin Ratio 0.7 (0.8-1.8); Anion Gap 8.0 mmol/L (3-11); Aspartate Aminotrans (AST/SGOT 26.0 U/L (12-37); Bilirubin, Total 0.3 mg/dL (0.1-1.0); Blood Urea Nitrogen 14.0 mg/dL (8-24); CO2, Blood 25.0 mmol/L (21-32); Calcium, Blood 8.9 mg/dL (8.5-10.1); Chloride, Blood 105.0 mmol/L (98-108); Creatinine, Blood 1.74 mg/dL (0.60-1.20); Globulin, Blood 3.8 g/dL (2.2-4.0); Glucose, Blood 108.0 mg/dL (70-99); Potassium, Blood 4.1 mmol/L (3.5-5.5); Sodium, Blood 134.0 mmol/L (136-145); Total Protein, Blood 6.6 g/dL (6.4-8.2)
[2025-06-26 21:15] LABS: pH Blood Venous 7.38 (7.34-7.37)
[2025-06-26] MEDS ORDERED: RX Prepack 2 Tabs Ondansetron ODT 4MG UD ONE (22:20)
[2025-06-26] MEDS ORDERED: METO10 PO (22:22)
[2025-06-26 22:30] VITALS: BP 191/126
== END 2025-06-26 22:35 | disposition home or self-care (01) ==
LOC: ER 18:19
PROVIDERS: Student in an Organized Health Care Education/Training Program
DX: K52.9 Noninfective gastroenteritis and colitis, unspecified (principal); E86.0 Dehydration; R00.0 Tachycardia, unspecified; D64.9 Anemia, unspecified; I10 Essential (primary) hypertension; E10.9 Type 1 diabetes mellitus without complications; K21.9 Gastro-esophageal reflux disease without esophagitis; F17.200 Nicotine dependence, unspecified, uncomplicated; Z79.4 Long term (current) use of insulin; Z79.899 Other long term (current) drug therapy; Z88.8 Allergy status to other drugs, medicaments and biological substances
CPT/HCPCS: 80053; 82010; 82803; 83880; 84484; 85025; 93005; 93010; 96365; 96375; 96376; 99284-25; A9270; J2405; J7030